=== PATIENT | male | born 1960 | race African-American/Black ===

== ENCOUNTER 2020-09-07 11:15 | Day surgery (SDC) | payer BC ==
[~2020-09-07 11:15] MED LIST: LIDOCAINE 1% (10MG/ML) FOR IV START INTRADERMA PRN
[2020-09-07 12:23] VITALS: RESP 16; TEMP 96.9
[2020-09-07] MEDS: LACTATED RINGERS 1,000 ML IV SCH ×2 (12:33→12:49)
[2020-09-07 12:35] LABS: Glucose,Whole Blood 153 mg/dL (75-99)
[2020-09-07] MEDS ORDERED: LIDOCAINE 1% INJ 10MG/ML (20 ML MDV) ONE (12:51)
[2020-09-07] MEDS ORDERED: PROPOFOL 10 MG/ML 20 ML VIAL IV ONE (12:51)
--- NOTE | 2020-09-07 13:20 | P.PCN ---
Date of Procedure: 09/07/20 Procedure(s) Performed: BRIEF HISTORY: Patient is a 60-year-old pleasant -[place] male scheduled for an elective colonoscopy as a part of screening for colorectal neoplasia. PROCEDURE PERFORMED: Colonoscopy. With snare polypectomy and Endo Clip placements PREOPERATIVE DIAGNOSIS: Screening for colon cancer. IV sedation per Anesthesia. PROCEDURE: After informed consent was obtained, the patient, was brought into the endoscopy unit. IV sedation was administered by Anesthesia under continuous monitoring. Digital rectal examination was normal. Initially the Olympus CF-160 flexible video colonoscope was then inserted in the rectum, gradually advanced into the cecum without any difficulty. Careful examination was performed as the scope was gradually being withdrawn. Ileocecal valve and the appendiceal orifice were visualized and appeared normal. Prep was excellent. The base of the cecum there was a 3 cm broad-based polyp removed by piecemeal snare polypectomy and complete polypectomy was accomplished. Endo clip was placed to prevent post- polypectomy bleed. Mucosa of the cecum, ascending colon normal. In the transverse colon there was a 5 mm polyp removed by snare polypectomy. Rest of the, transverse colon, descending colon, sigmoid colon, and rectum appeared normal. Retroflexion was performed in the rectum and no lesions were seen. The patient tolerated the procedure well. IMPRESSION: 3 cm broad-based cecal polyp status post piecemeal snare polypectomy followed by Endo Clip placement 5 mm transverse colon polyp status post polypectomy RECOMMENDATIONS: Findings of this examination were discussed with the patient as well as his family. He was advised to follow with the biopsy results and if the biopsy shows an adenoma plan a repeat colonoscopy in 6 months to one year.
[2020-09-07 13:43] VITALS: BP 126/76; PULSE 68
== END 2020-09-07 14:16 | disposition home or self-care (01) ==
LOC: ORWHC2ENDO 11:15
PROVIDERS: ATTEND Internal Medicine Gastroenterology
DX: Z12.11 Encounter for screening for malignant neoplasm of colon (principal); I10 Essential (primary) hypertension; E78.5 Hyperlipidemia, unspecified; M10.9 Gout, unspecified; E11.9 Type 2 diabetes mellitus without complications; Z79.84 Long term (current) use of oral hypoglycemic drugs; Z79.899 Other long term (current) drug therapy
CPT/HCPCS: 88305; 45385; J2001; J2704; 45382

== ENCOUNTER 2023-02-26 11:50 | Inpatient (IN) | payer BC ==
[2023-02-26] MEDS ORDERED: NITROGLYCERIN SL TABS 0.4 MG TAB SUBLINGUAL STA ×3 (12:04)
[2023-02-26] MEDS ORDERED: ASPIRIN 81 MG PO STA (12:04)
--- NOTE | 2023-02-26 12:06 | ED ---
General Adult HPI - General Chief complaint: Chest Pain Stated complaint: chest pains heavy chest Time Seen by Provider: 02/26/23 11:58 Source: patient, family, RN notes reviewed Mode of arrival: ambulatory Limitations: no limitations - History of Present Illness Initial comments: Patient is a pleasant 4 he 2-year-old male [facility]. Onset of symptoms was prior to arrival. Patient was walking and did do some sprints prior to onset however this was around a half an hour prior to it. Discomfort feels like pressure. Discomfort is rated 5/10. No dyspnea. Patient did have mild nausea and mild sweating earlier. No history of similar symptoms previously. No leg pain. No leg swelling. - Related Data Home Medications Medication Instructions Recorded Confirmed Atorvastatin [Lipitor] 10 mg PO HS 09/07/20 02/26/23 amLODIPine [Norvasc] 5 mg PO HS 09/07/20 02/26/23 glyBURIDE [Diabeta] 5 mg PO HS 09/07/20 02/26/23 metFORMIN HCL 500 mg PO HS 09/07/20 02/26/23 Allergies Allergy/AdvReac Type Severity Reaction Status Date / Time No Known Allergies Allergy Verified 02/26/23 13:17 Review of Systems ROS Statement: Those systems with pertinent positive or pertinent negative responses have been documented in the HPI. ROS Other: All systems not noted in ROS Statement are negative. Constitutional: Denies: fever Eyes: Denies: eye pain ENT: Denies: ear pain Respiratory: Denies: cough Cardiovascular: Reports: as per HPI, chest pain Endocrine: Denies: fatigue Gastrointestinal: Denies: vomiting Genitourinary: Denies: dysuria Musculoskeletal: Denies: back pain Past Medical History Past Medical History: Diabetes Mellitus History of Any Multi-Drug Resistant Organisms: None Reported Past Surgical History: No Surgical Hx Reported Past Psychological History: No Psychological Hx Reported Smoking Status: Never smoker Past Alcohol Use History: None Reported Past Drug Use History: None Reported General Exam Limitations: no limitations General appearance: alert, in no apparent distress Head exam: Present: normocephalic Eye exam: Present: normal appearance Neck exam: Present: normal inspection Respiratory exam: Present: normal lung sounds bilaterally. Absent: chest wall tenderness Cardiovascular Exam: Present: regular rate, normal rhythm Expanded Peripheral pulses: 2+: Radial (R), Radial (L), Posterior Tibialis (R), Posterior Tibialis (L) GI/Abdominal exam: Present: soft. Absent: tenderness Extremities exam: Present: normal inspection. Absent: pedal edema, calf tenderness Neurological exam: Present: alert Psychiatric exam: Present: normal affect, normal mood Skin exam: Present: normal color Course Vital Signs 02/26/23 11:53 Temperature 98 F Pulse Rate 70 Respiratory 18 Rate Blood Pressure 168/89 O2 Sat by Pulse 98 Oximetry EKG Findings - EKG Results: EKG: interpreted by ERMD, sinus rhythm, normal axis, normal QRS, normal ST/T Medical Decision Making - Medical Decision Making Was pt. sent in by a medical professional or institution (, PA, SKILLED NURSING CASE MANAGER, urgent care, hospital, or fdc...) When possible be specific @ -No Did you speak to anyone other than the patient for history (EMS, parent, family, police, friend...)? What history was obtained from this source @ - is present and helps provide history including patient's primary care physician Did you review nursing and triage notes (agree or disagree)? Why? @ -I reviewed and agree with nursing and triage notes Were old charts reviewed (outside hosp., previous admission, EMS record, old EKG, old radiological studies, urgent care reports/EKG's, fdc records)? Report findings @ -No old charts were reviewed Differential Diagnosis (chest pain, altered mental status, abdominal pain women, abdominal pain men, vaginal bleeding, weakness, fever, dyspnea, syncope, headache, dizziness, GI bleed, back pain, seizure, CVA, palpatations, mental health, musculoskeletal)? @ -Differential Chest Pain: Stable Angina, Unstable Angina, STEMI, NSTEMI Aortic Dissection, Pneumothorax, Musculoskeletal, Esophageal Spasm GERD, Cholecystitis, Pancreatitis, Zoster, this is not meant to be an all-inclusive list. EKG interpreted by me (3pts min.). @ -As above X-rays interpreted by me (1pt min.). @ -Chest x-ray shows no acute process CT interpreted by me (1pt min.). @ -Report reviewed U/S interpreted by me (1pt. min.). @ -None done What testing was considered but not performed or refused? (CT, X-rays, U/S, labs)? Why? @ -None What meds were considered but not given or refused? Why? @ -None Did you discuss the management of the patient with other professionals (professionals i.e. DrKeron, PA, SKILLED NURSING CASE MANAGER, lab, RT, psych nurse, clinical social work aide, business intelligence etl developer, teacher, recruitment officer, lining caser)? Give summary @ -Case was discussed with Dr. De Dios, who will admit for Dr. Agosto Was smoking cessation discussed for >3mins.? @ -No Was critical care preformed (if so, how long)? @ -No Were there social determinants of health that impacted care today? How? (Homel essness, low income, unemployed, alcoholism, drug addiction, transportation, low edu. Level, literacy, decrease access to med. care, prison, rehab)? @ -No Was there de-escalation of care discussed even if they declined (Discuss DNR or withdrawal of care, Hospice)? DNR status @ -No What co-morbidities impacted this encounter? (DM, HTN, Smoking, COPD, CAD, Cancer, CVA, ARF, Chemo, Hep., AIDS, mental health diagnosis, sleep apnea, morbid obesity)? @ -None Was patient admitted / discharged? Hospital course, mention meds given and route, prescriptions, significant lab abnormalities, going to OR and other pertinent info. @ -Patient reevaluated and is improved. Patient and family updated on results and plan. Patient will be admitted with cardiac consult. Admission orders written. Undiagnosed new problem with uncertain prognosis? @ -No Drug Therapy requiring intensive monitoring for toxicity (Heparin, Nitro, Insulin, Cardizem)? @ -No Were any procedures done? @ -No Diagnosis/symptom? @ -Chest pain Acute, or Chronic, or Acute on Chronic? @ -Acute Uncomplicated (without systemic symptoms) or Complicated (systemic symptoms)? @ -default Side effects of treatment? @ -No Exacerbation, Progression, or Severe Exacerbation? @ -No Poses a threat to life or bodily function? How? (Chest pain, [place], [place], pneumonia, PE, COPD, DKA, ARF, appy, cholecystitis, CVA, Diverticulitis, Homicidal, Suicidal, threat to staff... and all critical care pts) @ -No - Lab Data Result diagrams: 02/26/23 11:58 02/26/23 11:58 Lab Results 02/26/23 02/26/23 02/26/23 Range/Units 11:58 11:58 11:58 WBC 5.9 (3.8-10.6) k/uL RBC 4.92 (4.30-5.90) m/uL Hgb 15.5 (13.0-17.5) gm/dL Hct 46.4 (39.0-53.0) % MCV 94.3 (80.0-100.0) fL MCH 31.5 (25.0-35.0) pg MCHC 33.4 (31.0-37.0) g/dL RDW 12.7 (11.5-15.5) % Plt Count 269 (150-450) k/uL MPV 7.3 Neutrophils % 58 % Lymphocytes % 30 % Monocytes % 8 % Eosinophils % 2 % Basophils % 1 % Neutrophils # 3.4 (1.3-7.7) k/uL Lymphocytes # 1.8 (1.0-4.8) k/uL Monocytes # 0.4 (0-1.0) k/uL Eosinophils # 0.1 (0-0.7) k/uL Basophils # 0.0 (0-0.2) k/uL PT 10.9 (10.0-12.5) sec INR 1.0 (<1.2) APTT 23.9 (22.0-30.0) sec D-Dimer 0.74 H (<0.60) mg/L FEU Sodium 139 (137-145) mmol/L Potassium 4.5 (3.5-5.1) mmol/L Chloride 108 H (98-107) mmol/L Carbon Dioxide 21 L (22-30) mmol/L Anion Gap 10 mmol/L BUN 14 (9-20) mg/dL Creatinine 0.85 (0.66-1.25) mg/dL Est GFR (CKD-EPI)AfAm >90 (>60 ml/min/1.73 sqM) Est GFR (CKD-EPI)NonAf >90 (>60 ml/min/1.73 sqM) Glucose 194 H (74-99) mg/dL Calcium 9.6 (8.4-10.2) mg/dL Magnesium 1.7 (1.6-2.3) mg/dL Total Bilirubin 1.1 (0.2-1.3) mg/dL AST 29 (17-59) U/L ALT 25 (4-49) U/L Alkaline Phosphatase 79 (38-126) U/L Troponin I (0.000-0.034) ng/mL Total Protein 7.0 (6.3-8.2) g/dL Albumin 4.2 (3.5-5.0) g/dL 02/26/23 Range/Units 11:58 WBC (3.8-10.6) k/uL RBC (4.30-5.90) m/uL Hgb (13.0-17.5) gm/dL Hct (39.0-53.0) % MCV (80.0-100.0) fL MCH (25.0-35.0) pg MCHC (31.0-37.0) g/dL RDW (11.5-15.5) % Plt Count (150-450) k/uL MPV Neutrophils % % Lymphocytes % % Monocytes % % Eosinophils % % Basophils % % Neutrophils # (1.3-7.7) k/uL Lymphocytes # (1.0-4.8) k/uL Monocytes # (0-1.0) k/uL Eosinophils # (0-0.7) k/uL Basophils # (0-0.2) k/uL PT (10.0-12.5) sec INR (<1.2) APTT (22.0-30.0) sec D-Dimer (<0.60) mg/L FEU Sodium (137-145) mmol/L Potassium (3.5-5.1) mmol/L Chloride (98-107) mmol/L Carbon Dioxide (22-30) mmol/L Anion Gap mmol/L BUN (9-20) mg/dL Creatinine (0.66-1.25) mg/dL Est GFR (CKD-EPI)AfAm (>60 ml/min/1.73 sqM) Est GFR (CKD-EPI)NonAf (>60 ml/min/1.73 sqM) Glucose (74-99) mg/dL Calcium (8.4-10.2) mg/dL Magnesium (1.6-2.3) mg/dL Total Bilirubin (0.2-1.3) mg/dL AST (17-59) U/L ALT (4-49) U/L Alkaline Phosphatase (38-126) U/L Troponin I <0.012 (0.000-0.034) ng/mL Total Protein (6.3-8.2) g/dL Albumin (3.5-5.0) g/dL Disposition Clinical Impression: Chest pain Disposition: ADMITTED IP TO THIS HOSP Is patient prescribed a controlled substance at d/c from ED?: No Referrals: Blu Agosto MD [Primary Care Provider] - 1-2 days Time of Disposition: 13:50
[2023-02-26 12:24] LABS: Basophils % (A) 1 %; Eosinophils # (A) 0.1 k/uL (0-0.7); Eosinophils % (A) 2 %; HCT 46.4 % (39.0-53.0); HGB 15.5 gm/dL (13.0-17.5); Lymphocytes # (A) 1.8 k/uL (1.0-4.8); Lymphocytes % (A) 30 %; MCH 31.5 pg (25.0-35.0); MCHC 33.4 g/dL (31.0-37.0); MCV 94.3 fL (80.0-100.0); Mean Platelet Volume 7.3; Monocytes # (A) 0.4 k/uL (0-1.0); Monocytes % (A) 8 %; Neutrophils # (A) 3.4 k/uL (1.3-7.7); Neutrophils % (A) 58 %; Platelet Count 269 k/uL (150-450); RBC 4.92 m/uL (4.30-5.90); RDW 12.7 % (11.5-15.5); WBC 5.9 k/uL (3.8-10.6)
--- NOTE | 2023-02-26 12:27 | XR ---
EXAMINATION TYPE: XR chest 2V DATE OF EXAM: 02/26/2023 COMPARISON: NONE HISTORY: Shortness of breath TECHNIQUE: Frontal and lateral views of the chest are obtained. FINDINGS: Scattered senescent parenchymal changes noted. Hyperinflation compatible with COPD. No evidence for infiltrate. No evidence for atelectasis. Heart size is stable. Mediastinal structures are stable and grossly unremarkable. No evidence for hilar prominence. Degenerative changes dorsal spine. IMPRESSION: 1. No evidence for acute pulmonary disease.
[2023-02-26 12:40] LABS: ALT 25 U/L (4-49); AST 29 U/L (17-59); African American GFR (CKD) >90 (>60 ml/min/1.73 sqM); Albumin 4.2 g/dL (3.5-5.0); Alkaline Phosphatase 79 U/L (38-126); Anion Gap 10 mmol/L; Blood Urea Nitrogen 14 mg/dL (9-20); Calcium 9.6 mg/dL (8.4-10.2); Carbon Dioxide 21 mmol/L (22-30); Chloride 108 mmol/L (98-107); Glucose 194 mg/dL (74-99); Magnesium 1.7 mg/dL (1.6-2.3); Non-African American GFR(CKD) >90 (>60 ml/min/1.73 sqM); Potassium 4.5 mmol/L (3.5-5.1); Sodium 139 mmol/L (137-145); Total Bilirubin 1.1 mg/dL (0.2-1.3)
[2023-02-26 12:43] LABS: Partial Thromboplastin Time 23.9 sec (22.0-30.0); Prothrombin Time 10.9 sec (10.0-12.5)
--- NOTE | 2023-02-26 13:35 | CT ---
The EXAMINATION TYPE: CT angio chest DATE OF EXAM: 02/26/2023 COMPARISON: None HISTORY: elevated d-dimer CT DLP: 672.5 mGycm CONTRAST: CT chest with contrast and 3D reconstruction with MIP imaging is performed with IV Contrast, patient injected with 100 mL of Isovue 370. Contrast-enhanced CT of the chest was performed through the course of the pulmonary arteries with mercedez g and mediastinal window settings submitted. 3D reconstruction with MIP imaging was also performed. PULMONARY ARTERIES: The pulmonary arteries and their major tributaries are patent. I do not see fermin dence for sizable filling defect to suggest pulmonary embolic process. LUNGS: The lungs are clear and free of infiltrate. No evidence for atelectasis. No pulmonary nodule or mass is detected. No pleural effusion. MEDIASTINUM: Thoracic aorta is of normal caliber,however, evaluation is limited given timing of the contrast bolus. If there is concern for thoracic aortic pathology consider CORNELIA. Correlate clinicall y . The heart is not enlarged. No evidence for mediastinal mass. No mediastinal lymph nodes greater than 1cm. HILAR STRUCTURES: No evidence for mass. No hilar lymph nodes greater than 1 cm. UPPER ABDOMEN: No significant abnormality is seen. IMPRESSION: 1. No evidence for Pulmonary embolism at this time.
[2023-02-26] MEDS ORDERED: NITROGLYCERIN SL TABS 0.4 MG TAB SUBLINGUAL PRN (13:50)
[2023-02-26 16:46] LABS: Glucose,Whole Blood 124 mg/dL (70-110)
[2023-02-26] MEDS: INSULIN ASPART (NovoLOG) 100 UNIT/ML VIAL SQ SCH ×2 (16:47→21:19)
[2023-02-26] MEDS: NITROGLYCERIN OINT 1 INCH/GM PACKET TOPICAL SCH (17:06)
--- NOTE | 2023-02-26 17:28 | P.HPIM ---
History of Present Illness H&P Date: 02/26/23 Chief Complaint: Chest pain 62-year-old male, history of hypertension, hyperlipidemia, diabetes mellitus type 2, presenting to the emergency department with concerns for chest discomfort. Onset of symptoms was prior to arrival. Patient was walking and did do some sprints prior to onset however this was around a half an hour prior to it. Discomfort feels like pressure. Discomfort is rated 5/10. No dyspnea. Patient did have mild nausea and mild sweating earlier. No history of similar symptoms previously. No leg pain. No leg swelling. Blood work completed in ED reveals a WBC 5.9, hemoglobin 15.5 and platelet count of 269, sodium 139, potassium 4.5, BUN/creatinine of 14/0.85 and blood glucose of 194, troponin is less than 0.012; d-dimer is slightly elevated at 0.74 EKG is unremarkable; chest x-ray is negative for any acute process CTA chest is negative for PE Review of Systems REVIEW OF SYSTEMS: CONSTITUTIONAL: No fever, no malaise, no fatigue. HEENT: No recent visual problems or hearing problems. Denied any sore throat. CARDIOVASCULAR: No chest pain, orthopnea, PND, no palpitations, no syncope. PULMONARY: No shortness of breath, no cough, no hemoptysis. GASTROINTESTINAL: No diarrhea, no nausea, no vomiting, no abdominal pain. NEUROLOGICAL: No headaches, no weakness, no numbness. HEMATOLOGICAL: Denies any bleeding or petechiae. GENITOURINARY: Denies any burning micturition, frequency, or urgency. MUSCULOSKELETAL/RHEUMATOLOGICAL: Denies any joint pain, swelling, or any muscle pain. ENDOCRINE: Denies any polyuria or polydipsia. The rest of the 14-point review of systems is negative. Past Medical History Past Medical History: Diabetes Mellitus History of Any Multi-Drug Resistant Organisms: None Reported Past Surgical History: No Surgical Hx Reported Past Psychological History: No Psychological Hx Reported Smoking Status: Never smoker Past Alcohol Use History: None Reported Past Drug Use History: None Reported Medications and Allergies Home Medications Medication Instructions Recorded Confirmed Type Atorvastatin [Lipitor] 10 mg PO HS 09/07/20 02/26/23 History amLODIPine [Norvasc] 5 mg PO HS 09/07/20 02/26/23 History glyBURIDE [Diabeta] 5 mg PO HS 09/07/20 02/26/23 History metFORMIN HCL 500 mg PO HS 09/07/20 02/26/23 History Allergies Allergy/AdvReac Type Severity Reaction Status Date / Time No Known Allergies Allergy Verified 02/26/23 13:17 Physical Exam Vitals: Vital Signs Temp Pulse Resp BP Pulse Ox 02/26/23 14:00 64 18 124/59 97 02/26/23 13:00 64 18 153/84 97 02/26/23 11:53 98 F 70 18 168/89 98 Intake and Output 02/26/23 02/26/23 02/26/23 06:59 14:59 22:59 Other: Weight 115.666 kg PHYSICAL EXAMINATION: GENERAL: The patient is alert and oriented x3, not in any acute distress. Well developed, well nourished. HEENT: Pupils are round and equally reacting to light. EOMI. No scleral icterus. No conjunctival pallor. Normocephalic, atraumatic. No pharyngeal erythema. No thyromegaly. CARDIOVASCULAR: S1 and S2 present. No murmurs, rubs, or gallops. PULMONARY: Chest is clear to auscultation, no wheezing or crackles. ABDOMEN: Soft, nontender, nondistended, normoactive bowel sounds. No palpable organomegaly. MUSCULOSKELETAL: No joint swelling or deformity. EXTREMITIES: No cyanosis, clubbing, or pedal edema. NEUROLOGICAL: Gross neurological examination did not reveal any focal deficits. SKIN: No rashes. Results CBC & Chem 7: 02/26/23 11:58 02/26/23 11:58 Labs: Abnormal Lab Results - Last 24 Hours (Table) 02/26/23 02/26/23 Range/Units 11:58 11:58 D-Dimer 0.74 H (<0.60) mg/L FEU Chloride 108 H (98-107) mmol/L Carbon Dioxide 21 L (22-30) mmol/L Glucose 194 H (74-99) mg/dL Assessment and Plan Assessment: 1. Chest pain rule out acute coronary syndrome -- We will plan to admit patient to telemetry; monitor EKG and trend troponin - Patient will be placed on aspirin; sublingual nitroglycerin as needed for chest pain - We will plan to start IV heparin if patient continues to complain of chest pain or troponin trends up - We will order 2-D echo Consult cardiology 2. Elevated d-dimer; rule out PE; CT of the chest completed in ED was negative for PE 3. Hyperglycemia; history of diabetes mellitus type 2; patient takes glyburide and metformin which will be placed on hold while inpatient; we will monitor Accu-Cheks before meals and at bedtime with insulin sliding scale 4. Hyperlipidemia; Lipitor 10 mg 2 daily at bedtime 5. Hypertension; amlodipine 5 mg daily DVT prophylaxis; SCDs/subcu heparin CODE STATUS; full code
[2023-02-26] MEDS ORDERED: amLODIPine 5 MG TAB PO SCH (21:00)
[2023-02-26] MEDS ORDERED: ATORVASTATIN 10 MG TAB PO SCH (21:00)
[2023-02-26 21:07] LABS: Glucose,Whole Blood 105 mg/dL (70-110)
[2023-02-26] MEDS ORDERED: HEPARIN SODIUM 1,000 UN/ML (10ML VL) IV ONE (21:11)
[2023-02-26] MEDS ORDERED: HEPARIN SODIUM 1,000 UN/ML (10ML VL) IV PRN (21:11)
[2023-02-26] MEDS ORDERED: HEPARIN SOD,PORK IN 0.45% NACL 25,000 UNIT in 0.45% NACL 1 250ML.BAG IV SCH (21:15)
[2023-02-27] MEDS: NITROGLYCERIN OINT 1 INCH/GM PACKET TOPICAL SCH ×2 (01:11→06:06)
[2023-02-27 04:06] LABS: Partial Thromboplastin Time 35.2 sec (22.0-30.0); Prothrombin Time 10.8 sec (10.0-12.5)
[2023-02-27] MEDS ORDERED: HEPARIN SODIUM,PORCINE (1 ML) 2,500 UNIT in SODIUM CHLORIDE 0.9% 250 ML IRRIGATION PRN (07:00)
[2023-02-27] MEDS ORDERED: HEPARIN SODIUM,PORCINE 10,000 UNIT in SODIUM CHLORIDE 0.9% 1,000 ML IRRIGATION PRN (07:00)
[2023-02-27] MEDS ORDERED: ASPIRIN 325 MG TAB PO STA (08:14)
[2023-02-27] MEDS ORDERED: ATORVASTATIN 80 MG TAB PO STA (08:14)
[2023-02-27] MEDS ORDERED: ALPRAZolam 0.5 MG TAB PO PRN (08:14)
[2023-02-27] MEDS ORDERED: ALPRAZolam 0.25 MG TAB PO PRN (08:14)
[2023-02-27] MEDS ORDERED: NITROGLYCERIN SL TABS 0.4 MG TAB SUBLINGUAL PRN (08:14)
--- NOTE | 2023-02-27 08:20 | P.CRDCN ---
History of Present Illness Consult date: 02/27/23 History of present illness: History of Present Illness: The patient is a 62-year-old male with a history of hypertension, hyperlipidemia and diabetes who has been trying to be more active physically and presented with substernal chest discomfort that persisted after he went to [facility] and improved upon arrival to the emergency room and receiving nitroglycerin sublingually. He is pain-free at this time. He denies any chest discomfort or dyspnea at this point. He denies any dizziness or palpitations, no PND, orthopnea or peripheral edema. He has no prior cardiac history or recent cardiac workup. He has been trying to walk on a regular basis and do some sprinting and is feeling well until yesterday. In the emergency room his EKG showed no acute changes but he had troponin elevation. Medications: Metformin 500 mg daily, DiaBeta, Norvasc 5 mg daily, Lipitor 10 mg daily. Review of Systems: Respiratory: No history of asthma, bronchitis or recent cough. GI: No nausea or vomiting . No history of peptic ulcer disease. No recent GI bleed. : No hematuria or dysuria. Nervous System: No stroke or seizure. Physical Examination: 62-year-old male, alert and oriented no apparent distress ,Blood pressure 123/78, Heart rate 64 Head: Normocephalic. Eyes: Sclerae nonicteric. Neck: Good carotid upstroke, no bruit, no jugular venous distention. Lungs: Clear to auscultation. Heart: Regular rate and rhythm, S1-S2, no S3, no rub. No murmur. Abdomen: Soft nontender, positive bowel sounds no organomegaly. Extremities: No edema, intact distal pulses. Labs: Hemoglobin 15.5, potassium 4.5, BUN 14, creatinine 0.85, troponin less than 0.012, 0.128, 0.98. CT angiogram of the chest showed no evidence of embolism. Chest x-ray with no infiltrate EKG: Sinus mechanism normal axis and intervals with no acute ST segment changes Impression: 1. Acute non-STEMI, pain-free at this time 2. History of hypertension 3. History of hyperlipidemia 4. History of diabetes Plan: 1. Obtain an echocardiogram with Doppler 2. Continue statin 3. Proceed with coronary angiography to assess status and guide treatment 4. The risks and the complications were discussed with the patient who is in full understanding and agreement 5. Thank you for this consult we will follow with you Past Medical History Past Medical History: Diabetes Mellitus History of Any Multi-Drug Resistant Organisms: None Reported Past Surgical History: No Surgical Hx Reported Past Psychological History: No Psychological Hx Reported Smoking Status: Never smoker Past Alcohol Use History: None Reported Past Drug Use History: None Reported Medications and Allergies Home Medications Medication Instructions Recorded Confirmed Type Atorvastatin [Lipitor] 10 mg PO HS 09/07/20 02/26/23 History amLODIPine [Norvasc] 5 mg PO HS 09/07/20 02/26/23 History glyBURIDE [Diabeta] 5 mg PO HS 09/07/20 02/26/23 History metFORMIN HCL 500 mg PO HS 09/07/20 02/26/23 History Allergies Allergy/AdvReac Type Severity Reaction Status Date / Time No Known Allergies Allergy Verified 02/26/23 13:17 Physical Exam Vitals: Vital Signs Temp Pulse Resp BP Pulse Ox 02/27/23 06:00 64 18 123/78 96 02/27/23 05:00 62 18 107/62 95 02/27/23 04:00 61 18 116/65 99 02/27/23 03:00 67 18 128/67 98 02/27/23 00:00 65 20 114/77 96 02/26/23 23:00 80 20 132/74 96 02/26/23 22:00 75 22 140/79 96 02/26/23 21:00 75 22 150/78 96 02/26/23 20:35 80 18 150/78 95 02/26/23 19:00 85 15 02/26/23 16:00 63 17 160/87 96 02/26/23 15:21 68 18 160/87 97 02/26/23 14:00 64 18 124/59 97 02/26/23 13:00 64 18 153/84 97 02/26/23 11:53 98 F 70 18 168/89 98 Intake and Output 02/26/23 02/27/23 02/27/23 22:59 06:59 14:59 Intake Total 70.202 Balance 70.202 Intake: Intake, IV Titration 70.202 Amount Heparin Sod,Pork in 0.45% 70.202 NaCl 25,000 unit In 0.45 % NaCl 1 250ml.bag @ 8.65 UNITS/KG/HR 10.005 mls/ hr IV .Q24H DORITA Rx#: [id number] Results 02/26/23 11:58 02/26/23 11:58 Cardiac Enzymes 02/26/23 02/26/23 02/26/23 Range/Units 11:58 11:58 15:15 AST 29 (17-59) U/L Troponin I <0.012 0.128 H* (0.000-0.034) ng/mL 02/26/23 Range/Units 18:45 AST (17-59) U/L Troponin I 0.980 H* (0.000-0.034) ng/mL Coagulation 02/26/23 02/27/23 Range/Units 11:58 03:26 PT 10.9 10.8 (10.0-12.5) sec APTT 23.9 35.2 H (22.0-30.0) sec CBC 02/26/23 Range/Units 11:58 WBC 5.9 (3.8-10.6) k/uL RBC 4.92 (4.30-5.90) m/uL Hgb 15.5 (13.0-17.5) gm/dL Hct 46.4 (39.0-53.0) % Plt Count 269 (150-450) k/uL Comprehensive Metabolic Panel 02/26/23 Range/Units 11:58 Sodium 139 (137-145) mmol/L Potassium 4.5 (3.5-5.1) mmol/L Chloride 108 H (98-107) mmol/L Carbon Dioxide 21 L (22-30) mmol/L BUN 14 (9-20) mg/dL Creatinine 0.85 (0.66-1.25) mg/dL Glucose 194 H (74-99) mg/dL Calcium 9.6 (8.4-10.2) mg/dL AST 29 (17-59) U/L ALT 25 (4-49) U/L Alkaline Phosphatase 79 (38-126) U/L Total Protein 7.0 (6.3-8.2) g/dL Albumin 4.2 (3.5-5.0) g/dL Current Medications Generic Name Dose Route Start Last Admin Trade Name Freq PRN Reason Stop Dose Admin Amlodipine Besylate 5 mg 02/26/23 21:00 02/26/23 21:19 Amlodipine 5 Mg Tab PO 5 mg HS DORITA Administration Aspirin 325 mg 10/16/23 09:00 Aspirin 325 Mg Tab PO DAILY [facility] Atorvastatin Calcium 10 mg 02/26/23 21:00 02/26/23 21:19 Atorvastatin 10 Mg Tab PO 10 mg HS DORITA Administration Heparin Sodium (Porcine) 0 unit 02/26/23 21:11 02/27/23 04:19 Heparin Sodium 1,000 Un/Ml (10ml Vl) IV 2,891.65 unit PER PROTOCOL PRN Administration Low PTT Protocol Heparin Sodium/Sodium Chloride 250 mls @ 10.005 mls/hr 02/26/23 21:15 02/27/23 04:21 25,000 unit/ Sodium Chloride IV 10.65 units/kg/hr .Q24H DORITA 12.318 mls/hr Titration Protocol 8.65 UNITS/KG/HR Insulin Aspart 0 unit 02/26/23 17:30 02/26/23 21:19 Insulin Aspart (Novolog) 100 Unit/Ml Vial SQ 03/05/23 17:31 Not Given ACHS [facility] Protocol Nitroglycerin 0.4 mg 02/26/23 13:50 Nitroglycerin Sl Tabs 0.4 Mg Tab SUBLINGUAL Q5M PRN Chest Pain Nitroglycerin 1 inch 02/26/23 18:00 02/27/23 06:06 Nitroglycerin Oint 1 Inch/Gm Packet TOPICAL 1 inch Q6HR DORITA Administration Intake and Output 02/26/23 02/27/23 02/27/23 22:59 06:59 14:59 Intake Total 70.202 Balance 70.202 Intake: Intake, IV Titration 70.202 Amount Heparin Sod,Pork in 0.45% 70.202 NaCl 25,000 unit In 0.45 % NaCl 1 250ml.bag @ 8.65 UNITS/KG/HR 10.005 mls/ hr IV .Q24H [facility] Rx#: [id number] 02/26/23 11:58 02/26/23 11:58
[2023-02-27] MEDS: SODIUM CHLORIDE 0.9% 1,000 ML in EMPTY BAG 1 BAG IV SCH ×2 (08:36→13:10)
[2023-02-27] MEDS: INSULIN ASPART (NovoLOG) 100 UNIT/ML VIAL SQ SCH ×4 (08:41→20:21)
[2023-02-27 08:57] LABS: Basophils # (A) 0.07 X 10*3/uL (0.00-0.10); Basophils % (A) 0.8 %; Eosinophils # (A) 0.14 X 10*3/uL (0.04-0.35); Eosinophils % (A) 1.6 %; HCT 43.2 % (39.6-50.0); HGB 14.5 d/dL (13.0-17.0); Lymphocytes # (A) 4.09 X 10*3/uL (0.90-5.00); Lymphocytes % (A) 45.6 %; MCH 30.9 pg (27.0-32.0); MCHC 33.6 d/dL (32.0-37.0); MCV 92.1 FL (80.0-97.0); Mean Platelet Volume 9.9 FL (9.5-12.2); Monocytes % (A) 7.8 %; NRBC Per 100 WBC 0 X 10*3/uL (0.00-0.01); Neutrophils # (A) 3.94 X 10*3/uL (1.80-7.70); Neutrophils % (A) 43.9 %; Platelet Count 302 X 10*3/uL (140-440); RBC 4.69 X 10*6/uL (4.40-5.60); RDW 12.8 % (11.5-14.5); WBC 8.97 X 10*3/uL (4.50-10.00)
[2023-02-27] MEDS ORDERED: ASPIRIN 325 MG TAB PO SCH (09:00)
[2023-02-27] MEDS ORDERED: fentaNYL (PF) 50 MCG/ML 2 ML AMP ONE (09:44)
[2023-02-27] MEDS ORDERED: HEPARIN SODIUM 1,000 UN/ML (10ML VL) ONE (09:44)
[2023-02-27] MEDS ORDERED: IV FLUID CONTINUATION 1,000 ML IV ONE (09:48)
[2023-02-27 10:02] LABS: Blood Urea Nitrogen 15.6 mg/dL (9.0-27.0); Calcium 9.1 mg/dL (8.7-10.3); Carbon Dioxide 22.4 mmol/L (21.6-31.8); Chloride 106 mmol/L (96-109); Glucose 138 mg/dL (70-110); Potassium 3.8 mmol/L (3.5-5.5); Sodium 140 mmol/L (135-145)
[2023-02-27] MEDS ORDERED: fentaNYL (PF) 50 MCG/1 ML VIAL IVP ONE (10:29)
[2023-02-27] MEDS ORDERED: MIDAZOLAM 2 MG/2 ML VIAL IVP ONE (10:33)
[2023-02-27] MEDS ORDERED: LIDOCAINE 1% INJ 10MG/ML (20 ML MDV) SQ ONE (10:33)
[2023-02-27] MEDS ORDERED: VERAPAMIL SYRINGE (5 MG/10 ML) INTRAARTER ONE (10:35)
[2023-02-27] MEDS ORDERED: HEPARIN SODIUM 1,000 UN/ML (10ML VL) IV ONE (10:42)
[2023-02-27] MEDS ORDERED: CLOPIDOGREL 75 MG TAB ONE (10:48)
[2023-02-27] MEDS ORDERED: IOPAMIDOL-370 200ML BTL INJ ONE (10:51)
[2023-02-27] MEDS ORDERED: CLOPIDOGREL 75 MG TAB PO ONE (10:51)
[2023-02-27] MEDS ORDERED: RX INFO: IV CONTRAST WAS GIVEN 1 EACH MISC MISCELLANE PRN (11:00)
--- NOTE | 2023-02-27 11:06 | P.CARDCATH ---
Date of Procedure: 02/27/23 Description of Procedure: Cardiac Catheterization: The patient is a 62-year-old male with known history of hypertension, hyperlipidemia and diabetes who presented with symptoms of chest discomfort and mild troponin elevation. Recommendations were made regarding cardiac catheterization, the risks and the complications were discussed with the patient who is in full understanding and agreement. Procedure Description: Patient was brought to photo lab specialist in fasting semi-sedated state after receiving Fentanyl and Benadryl achieiving moderate conscious sedated state. Using Xylocaine Anesthesia and modified Seldinger technique, a 6-Romansh sheath was introduced in the right radial artery . Subsequently, selective coronary angiography was performed using a 5-Romansh 3.5 bend Dorothy catheter. Multiple views of the coronary artery including hemiaxial views were obtained. The right Dorothy catheter was used to cross the aortic valve and LVEDP was calculated. Following that, catheter and sheath were removed. Hemostasis was obtained with deployment of vascular band . There was no immediate complication. Patient was returned to room in stable condition. Of note, the patient received a total of 5000 units of intravenous heparin as well as intra-arterial verapamil. Findings: Left main: This is a large-size vessel, bifurcating into LAD and circumflex, left main has no high-grade stenosis LAD: This is a large-size vessel, reaching to the apex with a wraparound apex segment, giving rise to 2 diagonal branch. The first diagonal branch has a 50% plaque at the ostium the rest of the vessel has no high-grade stenosis Left circumflex: This is a nondominant vessel giving rise to 2 obtuse marginal branch of the first obtuse marginal branch is proximal and has a 50-60% ostial and proximal lesion, the rest of the vessel has mild mid disease with no high- grade stenosis RCA: This is a dominant vessel moderate in caliber and bifurcating distally to PDA and PLV the right coronary artery has 10-20% plaque in the proximal segment, there is an eccentric 50% plaque in the distal mid segment there is of the vessel has no high-grade stenosis. Left Ventriculogram: Not performed Hemodynamics: Was no gradient across the aortic valve, LVEDP was 16-20 mmHg Conclusion: 1. Mild to moderate triple-vessel disease 2. Right dominance Recommendations: It is possible that the patient had a rupture plaque or vasospasm, I would maximize his medical therapy in attempt to maintain his LDL below 70 with a gram per deciliter. The findings and the recommendations were discussed with the patient and the family and they were in full understanding and agreement. Duration of sedation is 19 minutes.
[2023-02-27 11:12] LABS: Glucose,Whole Blood 158 mg/dL (70-110)
[2023-02-27] MEDS: SODIUM CHLORIDE 0.9% 1,000 ML IV SCH (11:15)
[2023-02-27 12:21] LABS: Glucose,Whole Blood 268 mg/dL (70-110)
--- NOTE | 2023-02-27 13:01 | P.PN ---
Subjective Progress Note Date: 02/27/23 Patient is a 62 year old male who comes in with chest discomfort relieved by nitroglycerin. Had troponin elevation which peaked at 0.980. Patient underwent cardiac catheterization which reveals mild to moderate triple vessel disease, possible rupture plaque or vasospasm. Patient will be optimized medically with target LDL of less than 70. Echocardiogram is currently pending. Review of Systems Constitutional: Denied any fatigue denied any fever. Cardio vascular: denied any chest pain, palpitations Gastrointestinal: denied any nausea, vomiting, diarrhea Pulmonary: Denied any shortness of breath cough Neurologic denied any new focal deficits All inpatient medications were reviewed and appropriate changes in these medications as dictated in the interval history and assessment and plan. PHYSICAL EXAMINATION: GENERAL: The patient is alert and oriented x3, not in any acute distress. Well developed, well nourished. HEENT: Pupils are round and equally reacting to light. EOMI. No scleral icterus. No conjunctival pallor. Normocephalic, atraumatic. No pharyngeal erythema. No thyromegaly. CARDIOVASCULAR: S1 and S2 present. No murmurs, rubs, or gallops. PULMONARY: Chest is clear to auscultation, no wheezing or crackles. ABDOMEN: Soft, nontender, nondistended, normoactive bowel sounds. No palpable organomegaly. MUSCULOSKELETAL: No joint swelling or deformity. EXTREMITIES: No cyanosis, clubbing, or pedal edema. NEUROLOGICAL: Gross neurological examination did not reveal any focal deficits. SKIN: No rashes. Assessment Elevated troponin due to acute N-STEMI with mild to moderate triple vessel disease with possible rupture plaque or vasospasm Elevated d-dimer; rule out PE; CT of the chest completed in ED was negative for PE Diabetes Mellitus type 2 with hyperglycemia; patient takes glyburide and metformin which will be placed on hold while inpatient Dyslipidemia Hypertension Obesity Full Code Plan Patient has been started on dual antiplatelet therapy with aspirin 81 mg daily and plavix 75 mg daily Started on Imdur Amlodipine has been discontinued and patient has been started on lisinopril Target goal of LDL is less than 70, current level is 50 atorvastatin has been increased to 80 mg HS Continue to hold metformin for 48 hours post contrast Patient will be monitored overnight continue telemetry monitoring The impression and plan of care has been dictated by Tierra Guy, Nurse Practitioner as directed. Dr. Kaylah MD I have performed a history and physical examination and medical decision making of this patient, discussed the same with the dictator, and agree with the dictators assessment and plan as written, documented as a scribe. Based on total visit time, I have performed more than 50% of this visit. Objective - Vital Signs Vital signs: Vital Signs Temp 97.9 F 02/27/23 12:27 Pulse 71 02/27/23 12:27 Resp 18 02/27/23 12:27 BP 123/72 02/27/23 12:27 Pulse Ox 95 02/27/23 12:27 FiO2 Intake & Output 02/26/23 02/27/23 02/27/23 18:59 06:59 18:59 Intake Total 70.202 320 Balance 70.202 320 Weight 115.666 kg 115.666 kg Intake: IV 200 Intake, IV Titration 70.202 Amount Heparin Sod,Pork in 0.45% 70.202 NaCl 25,000 unit In 0.45 % NaCl 1 250ml.bag @ 8.65 UNITS/KG/HR 10.005 mls/ hr IV .Q24H [facility] Rx#: [id number] Oral 120 Other: # Voids 1 - Labs CBC & Chem 7: 02/27/23 03:26 02/27/23 03:26 Labs: Abnormal Lab Results - Last 24 Hours (Table) 02/26/23 02/26/23 02/26/23 Range/Units 15:15 16:44 18:45 APTT (22.0-30.0) sec Glucose (70-110) mg/dL POC Glucose (mg/dL) 124 H (70-110) mg/dL Troponin I 0.128 H* 0.980 H* (0.000-0.034) ng/mL 02/27/23 02/27/23 02/27/23 Range/Units 03:26 03:26 11:10 APTT 35.2 H (22.0-30.0) sec Glucose 138 H (70-110) mg/dL POC Glucose (mg/dL) 158 H (70-110) mg/dL Troponin I (0.000-0.034) ng/mL 02/27/23 Range/Units 12:19 APTT (22.0-30.0) sec Glucose (70-110) mg/dL POC Glucose (mg/dL) 268 H (70-110) mg/dL Troponin I (0.000-0.034) ng/mL Assessment and Plan Time with Patient: Less than 30
[2023-02-27] MEDS: PANTOPRAZOLE 40 MG TABLET PO SCH (13:02)
[2023-02-27] MEDS: ISOSORBIDE MONONITRATE ER 30 MG TAB.ER.24H PO SCH (13:07)
[2023-02-27 16:44] LABS: Glucose,Whole Blood 122 mg/dL (70-110)
[2023-02-27 20:34] VITALS: RESP 16
[2023-02-27] MEDS: lisinopriL 5 MG TAB PO SCH (20:52)
[2023-02-27 20:53] LABS: Glucose,Whole Blood 188 mg/dL (70-110)
[2023-02-27] MEDS ORDERED: ATORVASTATIN 80 MG TAB PO SCH (21:00)
[2023-02-28] MEDS: SODIUM CHLORIDE 0.9% 1,000 ML IV SCH (01:51)
[2023-02-28] MEDS: SODIUM CHLORIDE 0.9% 1,000 ML in EMPTY BAG 1 BAG IV SCH ×2 (01:51→11:38)
[2023-02-28 05:51] LABS: Glucose,Whole Blood 151 mg/dL (70-110)
[2023-02-28] MEDS: INSULIN ASPART (NovoLOG) 100 UNIT/ML VIAL SQ SCH ×2 (06:05→12:03)
[2023-02-28] MEDS: PANTOPRAZOLE 40 MG TABLET PO SCH (06:35)
[2023-02-28 08:02] VITALS: TEMP 97.8
[2023-02-28] MEDS: ISOSORBIDE MONONITRATE ER 30 MG TAB.ER.24H PO SCH (08:10)
[2023-02-28] MEDS: lisinopriL 5 MG TAB PO SCH (08:10)
[2023-02-28 08:18] LABS: African American GFR (CKD) >90 (>60 ml/min/1.73 sqM); Anion Gap 9 mmol/L; Blood Urea Nitrogen 15 mg/dL (9-20); Calcium 8.5 mg/dL (8.4-10.2); Carbon Dioxide 23 mmol/L (22-30); Chloride 107 mmol/L (98-107); Glucose 139 mg/dL (74-99); Non-African American GFR(CKD) >90 (>60 ml/min/1.73 sqM); Potassium 4.1 mmol/L (3.5-5.1); Sodium 139 mmol/L (137-145)
[2023-02-28] MEDS ORDERED: ASPIRIN 81 MG PO SCH (09:00)
[2023-02-28] MEDS ORDERED: CLOPIDOGREL 75 MG TAB PO SCH (09:00)
[2023-02-28 11:37] VITALS: BP 128/63; PULSE 68
[2023-02-28 11:54] LABS: Glucose,Whole Blood 153 mg/dL (70-110)
--- NOTE | 2023-02-28 13:01 | CA ---
Transthoracic Echo Report Name: Rei Jarrell Age: 62 Gender: M : 1960 Exam Date: 02/27/2023 16:00 Exam Location: [place] [facility] Ht (in): 69 Wt (lb): 255 Ordering Physician: Grazyna Bethea Attending/Referring Phys: [id number], [place] [employer] Radha Luna [facility] Procedure CPT: Indications: LV function, NSTEMI Cardiac Hx: Technical Quality: Contrast 1: Total Dose (mL): Contrast 2: Total Dose (mL): MEASUREMENTS (Male / Female) Normal Values 2D ECHO LV Diastolic Diameter PLAX 5.5 cm 4.2 - 5.9 / 3.9 - 5.3 cm LV Systolic Diameter PLAX 2.8 cm IVS Diastolic Thickness 1.4 cm 0.6 - 1.0 / 0.6 - 0.9 cm LVPW Diastolic Thickness 1.4 cm 0.6 - 1.0 / 0.6 - 0.9 cm LV Relative Wall Thickness 0.5 LVOT Diameter 2.0 cm Ascending Aorta Diameter 4.0 cm M-MODE Aortic Root Diameter MM 3.1 cm LA Systolic Diameter MM 3.9 cm LA Ao Ratio MM 1.3 AV Cusp Separation MM 2.2 cm DOPPLER AV Peak Velocity 150.0 cm/s AV Peak Gradient 9.0 mmHg AV Mean Velocity 111.9 cm/s AV Mean Gradient 5.5 mmHg AV Velocity Time Integral 29.4 cm AI Peak Velocity 412.7 cm/s AI Peak Gradient 68.1 mmHg AI Pressure Half Time 545.0 ms LVOT Peak Velocity 130.5 cm/s LVOT Peak Gradient 6.8 mmHg LVOT Velocity Time Integral 25.0 cm LVOT Stroke Volume 78.0 cm??? LVOT Stroke Volume Index 34.0 ml/m??? AV Area Cont Eq vti 2.7 cm??? AV Area Cont Eq pk 2.7 cm??? Mitral E Point Velocity 68.3 cm/s Mitral A Point Velocity 93.9 cm/s Mitral E to A Ratio 0.7 MV Deceleration Time 172.0 ms LV E' Lateral Velocity 5.6 cm/s Mitral E to LV E' Lateral Ratio 12.2 LV E' Septal Velocity 4.8 cm/s Mitral E to LV E' Septal Ratio 14.1 TR Peak Velocity 251.2 cm/s TR Peak Gradient 25.2 mmHg Right Atrial Pressure 3.0 mmHg Pulmonary Artery Systolic Pressu 28.2 mmHg Right Ventricular Systolic Press 28.2 mmHg FINDINGS Left Ventricle Moderately increased left ventricular wall thickness. Left ventricular cavity size at the upper limits of normal. Normal left ventricular systolic function with no obvious regional wall motion abnormalities. Left ventricular ejection fraction is estimated at 60-65%. Right Ventricle Mild right ventricular dilatation. Right Atrium Mild right atrial dilatation. Left Atrium Normal left atrial size. Mitral Valve Structurally normal mitral valve. Trace to mild mitral regurgitation. Aortic Valve Trileaflet aortic valve. Mild aortic regurgitation. Tricuspid Valve Structurally normal tricuspid valve. Trace tricuspid regurgitation. Pulmonic Valve Structurally normal pulmonic valve. Trace pulmonic regurgitation. Pericardium No pericardial effusion. Aorta Normal size aortic root and mildly dilated proximal ascending aorta. CONCLUSIONS LVH with preserved systolic function Mild RV enlargement Previewed by: Dr. Benedict Shay MD (Electronically Signed) Final Date: 28 February 2023 13:00
--- NOTE | 2023-02-28 14:21 | P.PN ---
Subjective HISTORY OF PRESENT ILLNESS: The patient is a 62-year-old male with a history of hypertension, hyperlipidemia and diabetes who has been trying to be more active physically and presented with substernal chest discomfort that persisted after he went to religion and improved upon arrival to the emergency room and receiving nitroglycerin sublingually. He is pain-free at this time. He denies any chest discomfort or dyspnea at this point. He denies any dizziness or palpitations, no PND, orthopnea or peripheral edema. He has no prior cardiac history or recent cardiac workup. He has been trying to walk on a regular basis and do some sprinting and is feeling well until yesterday. In the emergency room his EKG showed no acute changes but he had troponin elevation. Medications: Metformin 500 mg daily, DiaBeta, Norvasc 5 mg daily, Lipitor 10 mg daily. 02/28/2023 Patient is status post cardiac catheterization revealing mild to moderate triple vessel disease; with possibility that the patient had a ruptured plaque or vasospasm. Medical management was recommended. Patient examined this morning at the bedside. Patient denies any chest pain or pressure. He denies any shortness of breath. Vital signs are stable. Echocardiogram completed revealing ejection fraction 60-65%, trace to mild MR, mild aortic regurgitation, trace TR PHYSICAL EXAM: VITAL SIGNS: Reviewed. GENERAL: Well-developed in no acute distress. NECK: Supple. No JVD or thyromegaly LUNGS: Respirations even and unlabored. Lungs essentially clear to auscultation bilaterally. HEART: Regular rate and rhythm. S1 and S2 heard. EXTREMITIES: Normal range of motion. No clubbing or cyanosis. Peripheral p ulses intact. No lower extremity edema ASSESSMENT: Non-STEMI, status post cardiac catheterization revealing mild to moderate triple vessel disease with possibility of ruptured plaque or vasospasm Hypertension Hyperlipidemia Diabetes PLAN: Continue doing antiplatelet therapy with aspirin and Plavix Continue high intensity statin with atorvastatin 80 mg at night Continue additional cardiac medications Patient may be discharged home today from a cardiac standpoint and follow up on an outpatient basis Nurse practitioner note has been reviewed by physician. Signing provider agrees with the documented findings, assessment, and plan of care. Objective - Vital Signs Vital signs: Vital Signs Temp 97.8 F 02/28/23 07:51 Pulse 68 02/28/23 11:25 Resp 16 02/28/23 11:25 BP 128/63 02/28/23 11:25 Pulse Ox 95 02/28/23 11:25 FiO2 Intake & Output 02/27/23 02/28/23 02/28/23 18:59 06:59 18:59 Intake Total 438 Balance 438 Weight 115.666 kg Intake: IV 200 Oral 238 Other: Voiding Method Toilet # Voids 1 2 - Labs CBC & Chem 7: 02/27/23 03:26 02/28/23 06:48 Labs: Abnormal Lab Results - Last 24 Hours (Table) 02/27/23 02/27/23 02/27/23 Range/Units 12:36 16:43 20:51 Glucose (74-99) mg/dL POC Glucose (mg/dL) 122 H 188 H (70-110) mg/dL Hemoglobin A1c 8.4 H (<=6.0) % 02/28/23 02/28/23 02/28/23 Range/Units 05:50 06:48 11:53 Glucose 139 H (74-99) mg/dL POC Glucose (mg/dL) 151 H 153 H (70-110) mg/dL Hemoglobin A1c (<=6.0) %
--- NOTE | 2023-03-02 23:03 | P.DS ---
Providers Date of admission: 02/26/23 13:51 Attending physician: Chato Ojeda MD Consults: 02/26/23 13:51 Consult Physician Urgent Consulting Provider: Silvino Harrison Consult Reason/Comments: cp Do you want consulting provider notified?: Yes Primary care physician: Blu Agosto [facility] Course: Final Diagnosis Elevated troponin due to acute N-STEMI with mild to moderate triple vessel disease with possible rupture plaque or vasospasm Elevated d-dimer; rule out PE; CT of the chest completed in ED was negative for PE Diabetes Mellitus type 2 with hyperglycemia; patient takes glyburide and metformin which will be placed on hold while inpatient Dyslipidemia Hypertension Obesity Discharge Disposition Patient is stable for discharge home. He has been cleared by cardiology. Recommending to take aspirin 81 mg daily with plavix 75 mg daily and also lipitor has been increased to 80 mg HS. Patient will be optimized medically. Patient recommending to hold metformin for 48 hours after cardiac catheteriz ation which he can resume on 03/02. Patient to see cardiology in 1 to 2 weeks outpatient. Recommended to see his PCP Dr Agosto in 1 to 2 days. Hospital Course Patient is a 62 year old male who comes in with chest discomfort relieved by nitroglycerin. Had troponin elevation which peaked at 0.980. Patient underwent cardiac catheterization which reveals mild to moderate triple vessel disease, possible rupture plaque or vasospasm. Patient will be optimized medically with target LDL of less than 70. Echocardiogram reveals an EF of 60-65% with LVH and mild RV enlargement. Trace to mild MR, Trace TR and pulmonic regurgitation. He did have elevated D Dimer 0.74 on admission chest CTA was done which ruled out pulmonary embolism. Additionally hemoglobin A1C of 8.4 and discussed diet and lifestyle modifications with patient. Currently denying chest pain, denying shortness of breath. Lungs are clear, S1 S2 auscultated abdomen is soft and nontender. Focal neurological exam is negative. Patient will be discharged home. Please see medication reconciliation for a list of current medications. Thank you for allowing us to participate in the care of this patient. The impression and plan of care has been dictated by Tierra Guy, Nurse Practitioner as directed. Dr. Kaylah MD I have performed a history and physical examination and medical decision making of this patient, discussed the same with the dictator, and agree with the dictators assessment and plan as written, documented as a scribe. Based on total visit time, I have performed more than 50% of this visit. Patient Condition at Discharge: Stable Plan - Discharge Summary Discharge Rx Participant: No New Discharge Prescriptions: New Isosorbide Mononitrate ER [Imdur] 30 mg PO DAILY #30 tab Nitroglycerin Sl Tabs [Nitrostat] 0.4 mg SUBLINGUAL Q5M PRN #20 tab PRN Reason: Chest Pain Aspirin 81 mg PO DAILY #30 tab Clopidogrel [Plavix] 75 mg PO DAILY #30 tab Pantoprazole [Protonix] 40 mg PO AC-BRKFST #30 tab lisinopriL [Zestril] 5 mg PO BID #60 tab Atorvastatin [Lipitor] 80 mg PO HS #90 tab Continue glyBURIDE [Diabeta] 5 mg PO HS metFORMIN HCL 500 mg PO HS Discontinued amLODIPine [Norvasc] 5 mg PO HS Atorvastatin [Lipitor] 10 mg PO HS Discharge Medication List glyBURIDE [Diabeta] 5 mg PO HS 09/07/20 [History] metFORMIN HCL 500 mg PO HS 09/07/20 [History] Aspirin 81 mg PO DAILY #30 tab 02/28/23 [Rx] Atorvastatin [Lipitor] 80 mg PO HS #90 tab 02/28/23 [Rx] Clopidogrel [Plavix] 75 mg PO DAILY #30 tab 02/28/23 [Rx] Isosorbide Mononitrate ER [Imdur] 30 mg PO DAILY #30 tab 02/28/23 [Rx] Nitroglycerin Sl Tabs [Nitrostat] 0.4 mg SUBLINGUAL Q5M PRN #20 tab 02/28/23 [Rx] Pantoprazole [Protonix] 40 mg PO AC-BRKFST #30 tab 02/28/23 [Rx] lisinopriL [Zestril] 5 mg PO BID #60 tab 02/28/23 [Rx] Follow up Appointment(s)/Referral(s): Gagan Kingston MD [STAFF PHYSICIAN] - 1 Week (Office staff will call pt with an appointment date and time) Blu Agosto MD [Primary Care Provider] - 03/01/23 4:15 pm (appt with GEORGE Mariee) Ambulatory/Diagnostic Orders: Basic Metabolic Panel [LAB.AMB] Time Frame: 3 Days, Location: None Selected Patient Instructions/Handouts: Moderate Sedation (DC), After Radial Heart Catheterization (GEN), Type 2 Diabetes Management for Adults (DC) Activity/Diet/Wound Care/Special Instructions: NO METFORMIN FOR 48 HOURS NO DRIVING FOR 3 DAYS. OK TO SHOWER TOMORROW. REMOVE DRESSING FIRST NO NEED TO REAPPLY AFTER SHOWER. NO TUBS, SWIMMING OR SOAKING PUNCTURE SITE (NO DOING DISHES BY HAND) FOR FIVE DAYS TO AVOID RISK OF INFECTION. AVOID PUSHING, PULLING, LIFTING GREATER THAN 5 LBS FOR FIVE DAYS. SIGNS OF INFECTION IE: FEVER, RASH, UNUSUAL DRAINAGE, SWELLING OR HARD KNOT IN SITE CONTACT DOCTOR TO BE EVALUATED OR GO TO ER. IF PUNCTURE BLEEDS, HOLD FIRM PRESSURE OVER SITE AND GO TO ER. CALL [address] S[address]F. MEDICATIONS DIRECTED BY [employer] PALLET BU[employer]DER. Discharge Disposition: HOME SELF-CARE
== END 2023-02-28 14:34 | disposition home or self-care (01) | DRG 282 ==
LOC: EC 11:50 → OBSVTOIN 13:51 → 6NMEDSUR 13:51 → 3SCARD 02-27 04:19
PROVIDERS: ADMIT Internal Medicine; ATTEND Internal Medicine
PROC: 4A023N7 Measurement of Cardiac Sampling and Pressure, Left Heart, Percutaneous Approach (ICD-10-PCS; principal; 2023-02-27 12:55)
PROC: B2111ZZ Fluoroscopy of Multiple Coronary Arteries using Low Osmolar Contrast (ICD-10-PCS; principal; 2023-02-27 12:55)
DX: I21.3 ST elevation (STEMI) myocardial infarction of unspecified site (principal); I25.10 Atherosclerotic heart disease of native coronary artery without angina pectoris; I10 Essential (primary) hypertension; R79.1 Abnormal coagulation profile; I25.83 Coronary atherosclerosis due to lipid rich plaque; Z79.84 Long term (current) use of oral hypoglycemic drugs; Z79.899 Other long term (current) drug therapy; E78.5 Hyperlipidemia, unspecified; E66.9 Obesity, unspecified; Z68.37 Body mass index [BMI] 37.0-37.9, adult; Z28.21 Immunization not carried out because of patient refusal
CPT/HCPCS: 36415; 71046; 71275; 80048; 80053; 80061; 83036; 83735; 84484; 85025; 85379; 85610; 85730; 93005; 93306; 93458; 96365; 96366; 99285

== ENCOUNTER 2023-08-29 10:49 | Inpatient (IN) | payer BC, MEDICARE, OTHER ==
[2023-08-29] MEDS: HEPARIN SODIUM 1,000 UN/ML (10ML VL) IV ONE (10:53)
[2023-08-29] MEDS: MORPHINE SULFATE 4 MG/ML SYRINGE IV STA (10:54)
[2023-08-29] MEDS: SODIUM CHLORIDE 0.9% 1,000 ML IV ONE (11:00)
--- NOTE | 2023-08-29 11:02 | ED ---
Chest Pain HPI - General Chief Complaint: Chest Pain Stated Complaint: STEMI Time Seen by Provider: 08/29/23 10:50 Source: patient Mode of arrival: EMS Limitations: no limitations - History of Present Illness Initial Comments: 63-year-old man presents emergency department reporting chest pain. Patient states that he went on a walk this morning. He began having severe crushing chest pain. Patient is diaphoretic and nauseated. Upon EMS arrival they did find that he was having ST segment elevation. Patient states that he recently had a cardiac cath last year. He states that his cath was normal. He denies any stents in his heart. He does admit to some shortness of breath. Pain is worse with exertion. No fevers, chills or cough. No other alleviating, precipitating modifying factors - Related Data Home Medications Medication Instructions Recorded Confirmed Semaglutide [Ozempic] 0.5 mg SQ Q7D 08/29/23 08/29/23 Previous Rx's Medication Instructions Recorded Isosorbide Mononitrate ER [Imdur] 30 mg PO DAILY #30 tab 02/28/23 Nitroglycerin Sl Tabs [Nitrostat] 0.4 mg SUBLINGUAL Q5M PRN #20 tab 02/28/23 Acetaminophen Tab [Tylenol] 650 mg PO Q4HR PRN tab 08/31/23 Aspirin 81 mg PO DAILY tab 08/31/23 Atorvastatin [Lipitor] 80 mg PO HS #90 tab 08/31/23 Empagliflozin [Jardiance] 10 mg PO DAILY #30 tablet 08/31/23 Ezetimibe [Zetia] 10 mg PO DAILY #30 tab 08/31/23 Losartan [Cozaar] 25 mg PO DAILY #30 tab 08/31/23 Metoprolol Tartrate 75 mg PO BID #90 tab 08/31/23 Pantoprazole [Protonix] 40 mg PO AC-BRKFST #30 tab 08/31/23 Tamsulosin [Flomax] 0.4 mg PO PC-BRKFST #30 cap 08/31/23 Ticagrelor [Brilinta] 90 mg PO BID #60 tab 08/31/23 Allergies Allergy/AdvReac Type Severity Reaction Status Date / Time No Known Allergies Allergy Verified 08/29/23 13:39 Review of Systems ROS Statement: Those systems with pertinent positive or pertinent negative responses have been documented in the HPI. ROS Other: All systems not noted in ROS Statement are negative. Past Medical History Past Medical History: Diabetes Mellitus, Hyperlipidemia, Hypertension History of Any Multi-Drug Resistant Organisms: None Reported Past Surgical History: No Surgical Hx Reported, Hernia Repair Past Anesthesia/Blood Transfusion Reactions: No Reported Reaction Past Psychological History: No Psychological Hx Reported Smoking Status: Never smoker Past Alcohol Use History: None Reported Past Drug Use History: None Reported - Past Family History Father Family Medical History: COPD, Coronary Artery Disease (CAD) General Exam Limitations: no limitations General appearance: alert, in distress, other (Diaphoretic) Head exam: Present: atraumatic, normocephalic, normal inspection Eye exam: Present: normal appearance, PERRL, EOMI. Absent: scleral icterus, conjunctival injection, periorbital swelling ENT exam: Present: normal exam, mucous membranes moist Neck exam: Present: normal inspection. Absent: tenderness, meningismus, lymp hadenopathy Respiratory exam: Present: normal lung sounds bilaterally. Absent: respiratory distress, wheezes, rales, rhonchi, stridor Cardiovascular Exam: Present: regular rate, normal rhythm, normal heart sounds. Absent: systolic murmur, diastolic murmur, rubs, gallop, clicks GI/Abdominal exam: Present: soft, normal bowel sounds. Absent: distended, tenderness, guarding, rebound, rigid Extremities exam: Present: normal inspection, full ROM, normal capillary refill. Absent: tenderness, pedal edema, joint swelling, calf tenderness Back exam: Present: normal inspection Neurological exam: Present: alert, oriented X3, CN II-XII intact Psychiatric exam: Present: normal affect, normal mood Skin exam: Present: warm, dry, intact, normal color. Absent: rash Course Vital Signs 08/29/23 08/29/23 08/29/23 10:50 10:55 10:59 Temperature 98.0 F Pulse Rate 94 89 90 Pulse Rate [ 89 Supervisor Safety [employer] ] Respiratory 18 18 18 Rate Blood Pressure 143/97 145/94 137/91 O2 Sat by Pulse 95 98 96 Oximetry Chest Pain MDM - MDM Was pt. sent in by a medical professional or institution (, PA, OPTICAL MECHANIC, urgent care, hospital, or half-way...) When possible be specific @ -No Did you speak to anyone other than the patient for history (EMS, parent, family, police, friend...)? What history was obtained from this source @ -Spoke with EMS for history Did you review nursing and triage notes (agree or disagree)? Why? @ -I reviewed and agree with nursing and triage notes Were old charts reviewed (outside hosp., previous admission, EMS record, old EKG, old radiological studies, urgent care reports/EKG's, half-way records)? Report findings @ -I reviewed patient's heart cath from last February 2023 Differential Diagnosis (chest pain, altered mental status, abdominal pain women, abdominal pain men, vaginal bleeding, weakness, fever, dyspnea, syncope, headache, dizziness, GI bleed, back pain, seizure, CVA, palpatations, mental health, musculoskeletal)? @ -Differential Chest Pain: Stable Angina, Unstable Angina, STEMI, NSTEMI Aortic Dissection, Pneumothorax, Musculoskeletal, Esophageal Spasm GERD, Cholecystitis, Pancreatitis, Zoster, this is not meant to be an all-inclusive list. EKG interpreted by me (3pts min.). @ -EKG demonstrates sinus rhythm with a rate of 84. WV interval 182. QRS 88. QTc of 407. Patient has ST segment elevation V2 through V6. J-point elevation in the inferior leads. No reciprocal changes X-rays interpreted by me (1pt min.). @ -Yes and demonstrates no acute process CT interpreted by me (1pt min.). @ -None done U/S interpreted by me (1pt. min.). @ -None done What testing was considered but not performed or refused? (CT, X-rays, U/S, labs)? Why? @ -None What meds were considered but not given or refused? Why? @ -None Did you discuss the management of the patient with other professionals (professionals i.e. DrKeron, PA, OPTICAL MECHANIC, lab, RT, psych nurse, manager social responsibility, gemologist, teacher, commissioned fire officer, case checker)? Give summary @ -Spoke with Dr. Aguilar who does present to the emergency department to evaluate the patient. Also spoke to Dr. Agosto who will admit the patient Was smoking cessation discussed for >3mins.? @ -No Was critical care preformed (if so, how long)? @ -Yes, 40 minutes for STEMI activation Were there social determinants of health that impacted care today? How? (Homelessness, low income, unemployed, alcoholism, drug addiction, transportation, low edu. Level, literacy, decrease access to med. care, fci, rehab)? @ -No Was there de-escalation of care discussed even if they declined (Discuss DNR or withdrawal of care, Hospice)? DNR status @ -No What co-morbidities impacted this encounter? (DM, HTN, Smoking, COPD, CAD, Cancer, CVA, ARF, Chemo, Hep., AIDS, mental health diagnosis, sleep apnea, morbid obesity)? @ -Diabetes mellitus Was patient admitted / discharged? Hospital course, mention meds given and route, prescriptions, significant lab abnormalities, going to OR and other pertinent info. @ -Upon arrival patient was seen and evaluated in trauma 3. Thorough history and physical exam was performed. IV access was established. Laboratory studies were conducted. Portable chest x-ray was performed. STEMI has been activated prehospital. Dr. Aguilar does come to the emergency department to evaluate the patient. He was agreeable to taking the patient for heart cath. He was given heparin bolus. 1 L of normal saline is hung. Patient did receive his aspirin. He is taken to the Patient Svcs Mgr in stable condition with a guarded prognosis Undiagnosed new problem with uncertain prognosis? @ -No Drug Therapy requiring intensive monitoring for toxicity (Heparin, Nitro, Insulin, Cardizem)? @ -No Were any procedures done? @ -No Diagnosis/symptom? @ -Acute chest pain, acute STEMI Acute, or Chronic, or Acute on Chronic? @ -Acute Uncomplicated (without systemic symptoms) or Complicated (systemic symptoms)? @ -Complicated Side effects of treatment? @ -No Exacerbation, Progression, or Severe Exacerbation? @ -No Poses a threat to life or bodily function? How? (Chest pain, [place], [place], pneumonia, PE, COPD, DKA, ARF, appy, cholecystitis, CVA, Diverticulitis, Homicidal, Suicidal, threat to staff... and all critical care pts) @ -Yes as patient did arrive with STEMI Disposition Clinical Impression: STEMI (ST elevation myocardial infarction) Disposition: ADMITTED IP TO THIS HOSP Condition: Serious Is patient prescribed a controlled substance at d/c from ED?: No Time of Disposition: 11:04 Decision to Admit Reason: Admit from EC Decision Date: 08/29/23 Decision Time: 11:04
[2023-08-29] MEDS ORDERED: NALOXONE 0.4 MG/ML 1 ML VIAL IV PRN (11:04)
[2023-08-29] MEDS: IV FLUID CONTINUATION 1,000 ML IV ONE (11:06)
[2023-08-29] MEDS ORDERED: fentaNYL (PF) 50 MCG/ML 2 ML AMP ONE (11:13)
[2023-08-29] MEDS ORDERED: HEPARIN SODIUM 1,000 UN/ML (10ML VL) ONE (11:13)
[2023-08-29] MEDS: MIDAZOLAM 2 MG/2 ML VIAL IVP ONE (11:16)
[2023-08-29] MEDS: fentaNYL (PF) 50 MCG/ML 2 ML AMP IVP ONE (11:16)
[2023-08-29] MEDS: LIDOCAINE 1% INJ 10MG/ML (20 ML MDV) SQ ONE (11:17)
[2023-08-29] MEDS: HEPARIN SODIUM 1,000 UN/ML (10ML VL) IVP ONE (11:20)
[2023-08-29] MEDS: VERAPAMIL SYRINGE (5 MG/10 ML) INTRAARTER ONE (11:20)
[2023-08-29] MEDS ORDERED: TICAGRELOR 90 MG TAB ONE (11:27)
[2023-08-29] MEDS: TICAGRELOR 90 MG TAB PO ONE (11:30)
--- NOTE | 2023-08-29 11:36 | P.CRDCN ---
History of Present Illness History of present illness: HISTORY OF PRESENT ILLNESS: This is a 63-year-old male with a past medical history significant for coronary artery disease, hypertension, hyperlipidemia, and diabetes. Patient follows in the office with Dr. Kingston. We have been asked to see the patient in consultation for STEMI. Patient examined at the bedside in the emergency room. Patient states he was walking this morning and had a couple short episodes where he was jogging. He reports he began to have chest pain with radiation down his left arm. He presented to the ER for further evaluation. The patient continues to report chest pain at the time of examination. Blood pressure is stable. DIAGNOSTICS: - EKG reveals sinus mechanism with ST elevation in anterior lateral leads - Laboratory data: Not available at the time of this dictation - Current home cardiac medication list not updated at the time of this dictation - Most recent echocardiogram obtained in February 2023 reveals ejection fraction 60 to 65%, trace TR, trace to mild MR. - Cardiac catheterization history: February 2023 revealing mild to moderate triple-vessel disease. Medical management was recommended. REVIEW OF SYSTEMS: At the time of my exam: CONSTITUTIONAL: Denies fever or chills. HEENT: Denies blurred vision, vision changes, or eye pain. Denies hemoptysis CARDIOVASCULAR: Denies chest pain. Denies orthopnea. Denies PND. Denies palpitations RESPIRATORY: Denies shortness of breath. GASTROINTESTINAL: Denies abdominal pain. Denies nausea or vomiting. HEMATOLOGIC: Denies bleeding disorders. GENITOURINARY: Denies any blood in urine. SKIN: Denies pruitis. Denies rash. PHYSICAL EXAM: VITAL SIGNS: Reviewed. GENERAL: Well-developed in no acute distress. HEENT: Head is normocephalic. Pupils are equal, round. Sclerae anicteric. Mucous membranes of the mouth are moist. Neck supple. No JVD or thyromegaly LUNGS: Respirations even and unlabored. Lungs essentially clear to auscultation bilaterally. HEART: Regular rate and rhythm. S1 and S2 heard. ABDOMEN: Soft. Nondistended. Nontender. EXTREMITIES: Normal range of motion. No clubbing or cyanosis. Peripheral pulses intact. No lower extremity edema NEUROLOGIC: Awake and alert. Oriented x 3. ASSESSMENT: Anterior STEMI Mild to moderate triple-vessel disease, per cardiac catheterization 02/2023 Hypertension Hyperlipidemia Diabetes NYHA class 1 PLAN: Patient presenting with STEMI. Patient received heparin and aspirin in ER. Patient to undergo emergent cardiac cath with Dr. Harrison. Patient is agreeable. Further recommendations pending patient course. Nurse practitioner note has been reviewed by physician. Signing provider agrees with the documented findings, assessment, and plan of care documented by FOOD ANALYST as a scribe. Past Medical History Past Medical History: Diabetes Mellitus, Hyperlipidemia, Hypertension History of Any Multi-Drug Resistant Organisms: None Reported Past Surgical History: No Surgical Hx Reported, Hernia Repair Past Anesthesia/Blood Transfusion Reactions: No Reported Reaction Past Psychological History: No Psychological Hx Reported Smoking Status: Never smoker Past Alcohol Use History: None Reported Past Drug Use History: None Reported - Past Family History Father Family Medical History: COPD, Coronary Artery Disease (CAD) Medications and Allergies Home Medications Medication Instructions Recorded Confirmed Type glyBURIDE [Diabeta] 5 mg PO HS 09/07/20 02/26/23 History metFORMIN HCL 500 mg PO HS 09/07/20 02/26/23 History Aspirin 81 mg PO DAILY #30 tab 02/28/23 Rx Atorvastatin [Lipitor] 80 mg PO HS #90 tab 02/28/23 Rx Clopidogrel [Plavix] 75 mg PO DAILY #30 tab 02/28/23 Rx Isosorbide Mononitrate ER [Imdur] 30 mg PO DAILY #30 tab 02/28/23 Rx Nitroglycerin Sl Tabs [Nitrostat] 0.4 mg SUBLINGUAL Q5M PRN #20 tab 02/28/23 Rx Pantoprazole [Protonix] 40 mg PO AC-BRKFST #30 tab 02/28/23 Rx lisinopriL [Zestril] 5 mg PO BID #60 tab 02/28/23 Rx Allergies Allergy/AdvReac Type Severity Reaction Status Date / Time No Known Allergies Allergy Verified 08/29/23 10:55 Physical Exam Vitals: Vital Signs Temp Pulse Pulse Resp BP Pulse Ox 08/29/23 10:55 89 89 18 145/94 98 08/29/23 10:50 98.0 F 94 18 143/97 95 Intake and Output 08/28/23 08/29/23 08/29/23 22:59 06:59 14:59 Other: Weight 112.491 kg Results Current Medications Generic Name Dose Route Start Last Admin Trade Name Freq PRN Reason Stop Dose Admin Sodium Chloride 1,000 mls @ 999 mls/hr 08/29/23 11:00 08/29/23 11:00 Saline 0.9% IV 08/29/23 12:00 999 mls/hr .Q1H1M ONE Administration Naloxone HCl 0.2 mg 08/29/23 11:04 Naloxone 0.4 Mg/Ml 1 Ml Vial IV Q2M PRN Opioid Reversal Intake and Output 08/28/23 08/29/23 08/29/23 22:59 06:59 14:59 Other: Weight 112.491 kg Patient Weight 08/30/23 06:59 Weight 112.491 kg
[2023-08-29 11:38] LABS: ALT 19 U/L (4-49); AST 27 U/L (17-59); African American GFR (CKD) >90 (>60 ml/min/1.73 sqM); Alkaline Phosphatase 70 U/L (38-126); Anion Gap 8 mmol/L; Blood Urea Nitrogen 14 mg/dL (9-20); Calcium 8.9 mg/dL (8.4-10.2); Carbon Dioxide 23 mmol/L (22-30); Chloride 109 mmol/L (98-107); Glucose 167 mg/dL (74-99); Magnesium 1.8 mg/dL (1.6-2.3); Non-African American GFR(CKD) 88 (>60 ml/min/1.73 sqM); Potassium 3.8 mmol/L (3.5-5.1); Sodium 140 mmol/L (137-145); Total Bilirubin 1.7 mg/dL (0.2-1.3); Total Protein 6.9 g/dL (6.3-8.2)
[2023-08-29 11:41] LABS: NT-Pro-B-Type Natriuretic Pept <20 pg/mL
[2023-08-29] MEDS: IOPAMIDOL-370 100ML BTL INJ ONE ×2 (11:42→11:54)
[2023-08-29] MEDS ORDERED: ZOLPIDEM 5 MG TAB PO PRN (11:53)
[2023-08-29] MEDS ORDERED: ATROPINE SULFATE 0.1 MG/ML 10ML SYRINGE IV PRN (11:53)
[2023-08-29] MEDS ORDERED: NITROGLYCERIN SL TABS 0.4 MG TAB SUBLINGUAL PRN (11:53)
[2023-08-29] MEDS ORDERED: RX INFO: IV CONTRAST WAS GIVEN 1 EACH MISC MISCELLANE PRN (11:53)
--- NOTE | 2023-08-29 12:01 | P.PCN ---
Date of Procedure: 08/29/23 Operative Findings: CARDIAC CATHETERIZATION AND PERCUTANEOUS CORONARY INTERVENTION PERFORMING PHYSICIAN: Silvino Harrison MD, [facility] PROCEDURE PERFORMED: 1. Selective right and left coronary angiogram 2. Left heart catheterization 3. Successful stenting of proximal LAD using 4.0 x 33 mm Xience DARINEL with an excellent angiographic results 4. Adjunctive use of intravascular ultrasound and aspiration thrombectomy 5. Ultrasound-guided access of the right radial artery INDICATION: Acute anterior ST elevation myocardial infarction COMPLICATION: None APPROACH: Right radial artery PROCEDURE DESCRIPTION: After obtaining informed consent the patient was brought to the cardiac Insurance Agent. The right radial artery was cannulated using micropuncture technique under ultrasound guidance and micropuncture wire passed easily then I placed a 6 Qatari 11 cm sheath at the right radial artery. Anticoagulation was initiated using heparin with continuous ACT monitoring. After that I did selective right and left coronary angiogram using JR4 and JL 3.5 catheters. After that I did left heart catheterization using the JR4 catheter which crossed the aortic valve. The angiogram revealed occluded LAD in the proximal portion with a large thrombus burden. Anticoagulation as a mention earlier was initiated and continued using heparin with continuous ACT monitoring. I did engage the left main using JL 3.5 catheter. I did cross the acute total occlusion of the LAD using a run-through wire. Aspiration thrombectomy was performed using an export catheter with extraction of red thrombus. After that the predilatation was performed using 3.5 mm balloon. Intravascular ultrasound was performed and showed a diameter of the LAD proximally around 4.5 mm and distally around 4 mm. I deployed 4.0 x 33 mm stent and the stent subsequently postdilated using 5 mm noncompliant balloon. Final angiogram and intravascular imaging performed and showed excellent results with the procedure was completed with no complication SELECTIVE CORONARY ANGIOGRAM: The right coronary artery: Large-caliber vessel and a dominant vessel with intermediate disease involving the distal portion. Left main: Is angiographically normal. Bifurcates into an LCx and LAD The left circumflex: Large-caliber vessel and codominant vessel. The LCx has mild disease only. Gives rise into a large OM branch which appears to be angiographically normal. The left anterior descending artery: Large-caliber vessel and the LAD is occluded in the proximal portion with a large thrombus burden HEMODYNAMICS: The LVEDP was 30 mmHg with no significant gradient across aortic valve CONCLUSION: Acute total occlusion of the proximal LAD with a large thrombus burden. I performed successful PCI of the LAD Elevated left-sided filling pressure POSTPROCEDURE MANAGEMENT: 1. Dual antiplatelet therapy using aspirin and Brilinta for 12 month 2. Aggressive cholesterol control 3. Follow-up with the patient
[2023-08-29] MEDS: ATORVASTATIN 40 MG TAB PO STA (12:06)
[2023-08-29 12:08] LABS: Basophils # (A) 0.1 k/uL (0-0.2); Basophils % (A) 1 %; Eosinophils # (A) 0.1 k/uL (0-0.7); Eosinophils % (A) 1 %; HCT 45.8 % (39.0-53.0); HGB 15.2 gm/dL (13.0-17.5); Lymphocytes # (A) 2.9 k/uL (1.0-4.8); Lymphocytes % (A) 45 %; MCH 31.1 pg (25.0-35.0); MCHC 33.1 g/dL (31.0-37.0); MCV 93.8 fL (80.0-100.0); Mean Platelet Volume 7.8; Monocytes # (A) 0.6 k/uL (0-1.0); Monocytes % (A) 8 %; Neutrophils # (A) 2.7 k/uL (1.3-7.7); Neutrophils % (A) 42 %; Platelet Count 331 k/uL (150-450); RBC 4.88 m/uL (4.30-5.90); RDW 12.8 % (11.5-15.5); WBC 6.5 k/uL (3.8-10.6)
[2023-08-29] MEDS: SODIUM CHLORIDE 0.9% 1,000 ML in EMPTY BAG 1 BAG IV SCH (12:10)
--- NOTE | 2023-08-29 12:49 | XR ---
EXAMINATION TYPE: XR chest 1V portable DATE OF EXAM: 08/29/2023 Comparison: 02/26/2023 Clinical History: 63-year-old male with chest pain Findings: The heart is upper limits of normal in size. Hazy densities relating to portable technique and overly ing soft tissue and underpenetration. Mild hyperinflation. No consolidation or pleural effusion. Impression: Mild hyperinflation may relate to depth of inspiration or underlying emphysema. No definite acute pro cess.
[2023-08-29] MEDS ORDERED: DEXTROSE 50% SYRINGE 50 ML IVP PRN ×2 (14:22)
[2023-08-29 15:51] LABS: Glucose,Whole Blood 155 mg/dL (70-110)
[2023-08-29] MEDS: INSULIN ASPART (NovoLOG) 100 UNIT/ML VIAL SQ SCH (15:52)
--- NOTE | 2023-08-29 16:52 | CA ---
Transthoracic Echo Report Name: Rei Jarrell Age: 63 Gender: M : 1960 Exam Date: 08/29/2023 14:02 Exam Location: [facility] Ht (in): 69 Wt (lb): 248 Ordering Physician: Grazyna Bethea Attending/Referring Phys: [id number], [employer] Software Programmer Analisa Moore RDCS Procedure CPT: Indications: LV function Cardiac Hx: Technical Quality: Technically difficult study Contrast 1: Definity Total Dose (mL): 2 Contrast 2: Total Dose (mL): MEASUREMENTS (Male / Female) Normal Values 2D ECHO LV Diastolic Diameter PLAX 5.9 cm 4.2 - 5.9 / 3.9 - 5.3 cm LV Systolic Diameter PLAX 4.5 cm IVS Diastolic Thickness 1.4 cm 0.6 - 1.0 / 0.6 - 0.9 cm LVPW Diastolic Thickness 1.3 cm 0.6 - 1.0 / 0.6 - 0.9 cm LV Relative Wall Thickness 0.5 RV Internal Dim ED PLAX 3.0 cm LA Systolic Diameter LX 4.1 cm 3.0 - 4.0 / 2.7 - 3.8 cm LV Diastolic Volume MOD BP 90.0 cm??? 67 - 155 / 56 - 104 cm??? LV Systolic Volume MOD BP 46.0 cm??? 22 - 58 / 19 - 49 cm??? LV Ejection Fraction MOD BP 48.9 % >= 55 % LV Cardiac Index MOD BP 1551.1 cm???/min???m??? LV Diastolic Volume MOD 4C 92.7 cm??? LV Systolic Volume MOD 4C 50.5 cm??? LV Ejection Fraction MOD 4C 45.5 % LV Cardiac Index MOD 4C 1484.7 cm???/min???m??? LV Diastolic Length 4C 7.7 cm LV Systolic Length 4C 6.8 cm LV Diastolic Volume MOD 2C 63.0 cm??? LV Systolic Volume MOD 2C 34.6 cm??? LV Ejection Fraction MOD 2C 45.2 % LV Cardiac Index MOD 2C 1002.8 cm???/min???m??? LV Diastolic Length 2C 6.8 cm LV Systolic Length 2C 7.2 cm LA Volume 57.0 cm??? 18 - 58 / 22 - 52 cm??? LA Volume Index 23.9 cm???/m??? 16 - 28 cm???/m??? M-MODE Aortic Root Diameter MM 3.5 cm MV E Point Septal Separation 0.4 cm AV Cusp Separation MM 2.4 cm DOPPLER MV Area PHT 5.0 cm??? Mitral E Point Velocity 97.2 cm/s Mitral A Point Velocity 76.8 cm/s Mitral E to A Ratio 1.3 MV Deceleration Time 151.7 ms TR Peak Velocity 250.9 cm/s TR Peak Gradient 25.2 mmHg Right Ventricular Systolic Press 29.5 mmHg FINDINGS Left Ventricle Left ventricular ejection fraction is estimated at 35 %. Left ventricular cavity size normal. Moderate concentric left ventricular hypertrophy. Mid to distal septal wall hypokinesis. Apical inferior and anterior hypokinesis Right Ventricle Normal right ventricular size. Right ventricular systolic pressure within normal limits. Right Atrium Right atrium not well visualized. Left Atrium Normal left atrial size. Mitral Valve Structurally normal mitral valve. Mild mitral annular calcification. Mild mitral regurgitation. Aortic Valve Trileaflet aortic valve. No aortic valve stenosis or regurgitation. Tricuspid Valve Structurally normal tricuspid valve. Mild tricuspid regurgitation. Pulmonic Valve Structurally normal pulmonic valve. Trace to mild pulmonic regurgitation. Pericardium No pericardial effusion. Aorta Normal size aortic root and proximal ascending aorta. CONCLUSIONS Moderate to severe LV systolic dysfunction with an ejection fraction of 35% Apical hypokinesis suggestive of prior myocardial infarction Mild mitral and tricuspid regurgitation Previewed by: Dr. Josr Enamorado MD (Electronically Signed) Final Date: 29 August 2023 16:51
[2023-08-29] MEDS: ACETAMINOPHEN TAB 325 MG TAB PO PRN (17:46)
[2023-08-29] MEDS: MORPHINE SULFATE 2 MG/ML SYRINGE IVP PRN (19:06)
[2023-08-29 20:07] LABS: Glucose,Whole Blood 152 mg/dL (70-110)
[2023-08-29] MEDS: ATORVASTATIN 80 MG TAB PO SCH (20:07)
[2023-08-29] MEDS: METOPROLOL TARTRATE 25 MG TAB PO SCH (20:07)
[2023-08-29] MEDS: TICAGRELOR 90 MG TAB PO SCH (20:08)
[2023-08-29 20:21] LABS: Glucose,Whole Blood 139 mg/dL (70-110)
[2023-08-29 20:43] LABS: African American GFR (CKD) >90 (>60 ml/min/1.73 sqM); Anion Gap 5 mmol/L; Blood Urea Nitrogen 13 mg/dL (9-20); Calcium 8.8 mg/dL (8.4-10.2); Carbon Dioxide 24 mmol/L (22-30); Chloride 110 mmol/L (98-107); Glucose 152 mg/dL (74-99); Magnesium 1.9 mg/dL (1.6-2.3); Non-African American GFR(CKD) >90 (>60 ml/min/1.73 sqM); Potassium 3.9 mmol/L (3.5-5.1); Sodium 139 mmol/L (137-145)
[2023-08-29] MEDS ORDERED: Magnesium Replacement Protocol 1 EACH MISC MISCELLANE PRN (20:52)
[2023-08-29] MEDS ORDERED: Potassium Replacement Protocol 1 EACH MISC MISCELLANE PRN (20:52)
[2023-08-29] MEDS ORDERED: ATORVASTATIN 80 MG TAB PO SCH (21:00)
[2023-08-29] MEDS: MAGNESIUM SULFATE-D5W PMX 1 GM in DEXTROSE/WATER 1 100ML.BAG IVPB ONE (21:09)
[2023-08-29] MEDS: POTASSIUM CHLORIDE ER 20 MEQ TAB.ER PO SCH (21:10)
--- NOTE | 2023-08-29 22:00 | P.HPIM ---
History of Present Illness H&P Date: 08/29/23 Chief Complaint: Acute ST elevation myocardial infarction, acute coronary sy ndrome, HISTORY OF PRESENT ILLNESS: 63-year-old one of my office patient well-known for long time with history of coronary artery disease, hypertension, hyperlipidemia, type 2 diabetes, history of BPH, osteoarthritis, chronic edema, who has been seen cardiology regularly w as hospitalized last in February 26, 2023 for episode of chest pain with slight change in EKG was taken to the [facility] And finding at the time with the left main is a large vessel with left main has no high-grade stenosis, LAD with large vessel with the first diagonal branch has 50% black at the ostium the rest of the vessel had no high-grade stenosis, also left circumflex had at the first obtuse marginal branch approximately 50 to 60% ostial and proximal lesion the RCA had 50% plaque in the distal mid segmental with there is no high-grade stenosis in general has mild to moderate triple-vessel disease. Patient was seen back in the office and seen by cardiology and optimized medical management by being on better antilipid management, better diabetic medication and tighter blood pressure control. He apparently stopped at some point taking his atorvastatin continue to exercise and lose weight. Patient Was walking this morning for about 2 miles while he was speed walking and jogging at some point he reported to have midsternal chest pain radiating to her left arm he has family member to call 911 per patient brought to the emergency department at [facility]. Was seen and evaluated his EKG showed significant ST elevation in the anterolateral leads consistent with acute coronary syndrome and ST elevation myocardial infarction. Patient at this point recall cardiology and sent patient to the [facility] but patient ended up going for heart catheter were found to have total occlusion of the proximal LAD with a large thrombus burden ended up having adjunctive use of intravascular ultrasound and aspiration thrombectomy done had successful stenting of the proximal LAD. The patient tolerated the procedure well ended up being admitted to the ICU afterward he is continue to have slight discomfort in the midsternal area but hemodynamically stable. REVIEW OF SYSTEMS: CONSTITUTIONAL: Well-developed no acute respiratory distress. EYES: No icterus sclerae, no conjunctivitis. EARS, NOSE, MOUTH, THROAT, and FACE: No sore throat, lymphadenopathy, carotid bruits or deformity. RESPIRATORY: Mild shortness of breath no cough or wheezes. CARDIOVASCULAR: Positive PND orthopnea palpitation and angina. GASTROINTESTINAL: No Abd pain, Nausea or vomiting, no Diarrhea or constipation, No GI Bleed, no distention or masses. GENITOURINARY: Negative for Hematuria or UTI, no kidney stones. INTEGUMENT/BREAST: Negative for any muscular injury with mild osteoarthritis.. HEMATOLOGIC/LYMPHATIC: Negative for bleed or purpura. MUSCULOSKELTAL: Negative for Myalgia or arthralgia. NEURLOGICAL: No LOC, Sz or syncope, blurred vision dizziness or abnormality.. BEHAVIORAL/PSYCH: Negative. ENDOCRINE: Negative. PHYSICAL EXAMINATION: General Appearance: Alert, cooperative, no distress, appears stated age. Neck HEENT: Supple, no lymphadenopathy, no thyroid enlargement, no carotid bruits. Lungs: Clear to auscultation without crackles or wheezes no rhonchi, no deformity. Chest Wall: Decreased expansion with deep inspiration no tenderness and no deformity was found on exam, no costochondral pain or discomfort. Heart: Regular rate and rhythm, S1, S2 normal, no murmur, rub or gallop. Back: Symmetric, no curvature, ROM normal, no CVA tenderness. Abdomen: Soft, non-tender, bowel sounds active all four quadrants, no masses, no organomegaly. Extremities: Extremities normal, atraumatic, no cyanosis or edema. Pulses: 2+ and symmetric. Skin: Skin color, texture, tugor normal, no rashes or lesions. Neurologic: Alert oriented x3 cranial nerves II through XII intact, no motor deficit, no abnormal balance or gait. ASSESSMENT AND PLAN: _Acute ST elevation myocardial infarction: With major change on EKG consistent with acute MA, patient was heparinized going to the [facility] had an angioplasty and stent placement of the proximal LAD. _Acute coronary syndrome: Still hemodynamically stable after his angioplasty and stent. _Post PCI and stent placement of the proximal LAD with thrombectomy done at that time secondary to acute MA with thrombus of the proximal LAD, patient had thrombectomy and stent placement will continue dual antiplatelet agent with Brilinta along with aspirin continue better medical management at this point. _Type 2 diabetes: Has been on Ozempic along with Janumet orally, has been doing well on Ozempic with significant improvement lately A1c will be done tomorrow continue Accu-Chek with sliding scale coverage. _Hypertension: Remain on amlodipine patient supposed to start ARB along with beta-edy and if he is able to tolerate medication well no need for calcium channel edy. _Hyperlipidemia: Was on atorvastatin 80 mg daily which apparently patient has not been taking lately continue 80 mg of atorvastatin and if for any reason cannot tolerated well we will switch to another statin and consider the idea of starting patient on Repatha 140 mg twice a month injection. _BPH: With? Of UTI, UA and culture will be done and start antibiotic if positi ve. _Mild neuropathy: With slight change not on any medication currently can benefit from smaller dose of gabapentin. _Significant decrease in ejection fraction post myocardial infarction: Patient w ill be on a slightly tighter management for heart failure at this point including possibility of being on ARB, small dose of beta-edy, and at least spironolactone. _GI prophylaxis: Will start pantoprazole 40 mg daily. _DVT prophylaxis: Early mobilization and knee-high FILI hose. CODE STATUS: Full code. Admit patient to the inpatient service for more than 2 night stay. Past Medical History Past Medical History: Diabetes Mellitus, Hyperlipidemia, Hypertension History of Any Multi-Drug Resistant Organisms: None Reported Past Surgical History: No Surgical Hx Reported, Hernia Repair Past Anesthesia/Blood Transfusion Reactions: No Reported Reaction Past Psychological History: No Psychological Hx Reported Smoking Status: Never smoker Past Alcohol Use History: None Reported Past Drug Use History: None Reported - Past Family History Father Family Medical History: COPD, Coronary Artery Disease (CAD) Medications and Allergies Home Medications Medication Instructions Recorded Confirmed Type Atorvastatin [Lipitor] 80 mg PO HS #90 tab 02/28/23 08/29/23 Rx Clopidogrel [Plavix] 75 mg PO DAILY #30 tab 02/28/23 08/29/23 Rx Isosorbide Mononitrate ER [Imdur] 30 mg PO DAILY #30 tab 02/28/23 08/29/23 Rx Nitroglycerin Sl Tabs [Nitrostat] 0.4 mg SUBLINGUAL Q5M PRN #20 tab 02/28/23 08/29/23 Rx Semaglutide [Ozempic] 0.5 mg SQ Q7D 08/29/23 08/29/23 History amLODIPine [Norvasc] 5 mg PO DAILY 08/29/23 08/29/23 History Allergies Allergy/AdvReac Type Severity Reaction Status Date / Time No Known Allergies Allergy Verified 08/29/23 13:39 Physical Exam Vitals: Vital Signs Temp Pulse Pulse Resp BP Pulse Ox 08/29/23 16:00 98.2 F 82 11 L 154/87 91 L 08/29/23 15:00 90 24 178/113 89 L 08/29/23 14:00 80 20 128/76 94 L 08/29/23 13:00 88 14 133/80 95 08/29/23 12:50 97.5 F L 88 24 133/80 92 L 08/29/23 10:59 90 18 137/91 96 08/29/23 10:55 89 89 18 145/94 98 08/29/23 10:50 98.0 F 94 18 143/97 95 Intake and Output 08/29/23 08/29/23 08/29/23 06:59 14:59 22:59 Intake Total 450 150 Output Total 200 200 Balance 250 -50 Intake: IV 300 Intake, IV Titration 150 150 Amount Sodium Chloride 0.9% 1, 150 150 000 ml In Empty Bag 1 bag @ 75 mls/hr IV .[id number] [facility] [place] Rx#:[id number] Output: Urine 200 200 Other: Weight 112.491 kg Results CBC & Chem 7: 08/29/23 10:56 08/29/23 20:08 Labs: Abnormal Lab Results - Last 24 Hours (Table) 08/29/23 08/29/23 Range/Units 10:56 15:50 Chloride 109 H (98-107) mmol/L Glucose 167 H (74-99) mg/dL POC Glucose (mg/dL) 155 H (70-110) mg/dL Total Bilirubin 1.7 H (0.2-1.3) mg/dL
[2023-08-29 23:22] LABS: Amorphous Sediment,Urine Rare /hpf; Appearance,Urine Clear (Clear); Bacteria,Urine Rare /hpf; Bilirubin,Urine Negative (Negative); Blood,Urine Small (Negative); Color,Urine Yellow; Glucose,Urine (UA) 2+ (Negative); Ketones,Urine 1+ (Negative); Leukocyte Esterase,Urine Negative (Negative); Mucus,Urine Few /hpf; Nitrite,Urine Negative (Negative); Protein,Urine Trace (Negative); RBC,Urine 12 /hpf (0-5); Specific Gravity,Urine 1.038 (1.001-1.035); Squamous Epithelial Cell,Urine <1 /hpf (0-4); Urobilinogen,Urine <2.0 mg/dL (<2.0); WBC,Urine 2 /hpf (0-5)
[2023-08-30] MEDS: MAG HYDROX/AL HYDROX/SIMETH 30 ML CUP PO PRN (00:43)
[2023-08-30 06:24] LABS: Glucose,Whole Blood 130 mg/dL (70-110)
[2023-08-30] MEDS: PANTOPRAZOLE 40 MG TABLET PO SCH (06:31)
[2023-08-30 06:57] LABS: Basophils % (A) 0 %; Eosinophils # (A) 0.1 k/uL (0-0.7); Eosinophils % (A) 1 %; HCT 50.8 % (39.0-53.0); HGB 16.9 gm/dL (13.0-17.5); Lymphocytes # (A) 1.5 k/uL (1.0-4.8); Lymphocytes % (A) 10 %; MCH 31.3 pg (25.0-35.0); MCHC 33.4 g/dL (31.0-37.0); MCV 93.8 fL (80.0-100.0); Mean Platelet Volume 7.4; Monocytes % (A) 7 %; Neutrophils # (A) 12.6 k/uL (1.3-7.7); Neutrophils % (A) 82 %; Platelet Count 356 k/uL (150-450); RBC 5.41 m/uL (4.30-5.90); RDW 13.2 % (11.5-15.5); WBC 15.3 k/uL (3.8-10.6)
[2023-08-30 07:20] LABS: ALT 105 U/L (4-49); African American GFR (CKD) >90 (>60 ml/min/1.73 sqM); Albumin 4.2 g/dL (3.5-5.0); Alkaline Phosphatase 74 U/L (38-126); Anion Gap 11 mmol/L; Blood Urea Nitrogen 14 mg/dL (9-20); Calcium 9.2 mg/dL (8.4-10.2); Carbon Dioxide 23 mmol/L (22-30); Chloride 106 mmol/L (98-107); Glucose 153 mg/dL (74-99); Magnesium 2.1 mg/dL (1.6-2.3); Non-African American GFR(CKD) >90 (>60 ml/min/1.73 sqM); Sodium 140 mmol/L (137-145); Total Bilirubin 2.4 mg/dL (0.2-1.3); Total Protein 7.3 g/dL (6.3-8.2)
[2023-08-30 07:27] LABS: AST 1000 U/L (17-59)
--- NOTE | 2023-08-30 07:42 | P.PN ---
Subjective Progress Note Date: 08/30/23 Principal diagnosis: STEMI The patient is a very pleasant 63-year-old -[place] gentleman with a past medical history significant for coronary artery disease as well as diabetes and hypertension and dyslipidemia who was admitted to the hospital with acute anterior ST ovation myocardial infarction and he underwent an emergent heart catheterization which revealed acute total occlusion of the LAD in the proximal portion which was stented with mild disease involving the left circumflex and intermediate disease involving the RCA. The echo revealed impaired LV systolic function with EF around 35%. August 30, 2023 The patient was seen and evaluated this morning. He is asymptomatic at this point. He did have short runs of nonsustained ventricular tachycardia yesterda y. The pressure remains elevated. His liver function tests are elevated as well. The right radial site is soft and nontender with a good pulse. I am going to DC the statin in the light of elevated liver function test. Add losartan to the current medical regimen and continue dual antiplatelet therapy using aspirin and Brilinta and increase the dose of metoprolol. The examination revealed regular rhythm with clear breathing sounds bilaterally and no edema was noted and the right radial site is soft and nontender with no bruises. Assessment Acute anterior ST deviation myocardial infarction Status post PCI of the LAD as described above Impaired LV function with EF around 35% Multiple comorbid conditions including diabetes and hypertension and dyslipidemia Elevated liver function test Plan DC statin Add Zetia Consider PCSK9 inhibitor Increase the dose of metoprolol Add losartan to the current medical regimen Continue dual antiplatelet therapy The patient can be transferred out of the intensive care unit Objective - Vital Signs Vital signs: Vital Signs Temp 98.5 F 08/30/23 04:00 Pulse 90 08/30/23 07:00 Resp 24 08/30/23 07:00 BP 154/93 08/30/23 07:00 Pulse Ox 96 08/30/23 07:00 FiO2 Intake & Output 08/29/23 08/30/23 08/30/23 18:59 06:59 18:59 Intake Total 750 175 Output Total 400 900 Balance 350 -725 Weight 112.491 kg 101.1 kg Intake: IV 300 Intake, IV Titration 450 175 Amount Magnesium Sulfate-D5w Pmx 100 1 gm In Dextrose/Water 1 100ml.bag @ 100 mls/hr IVPB ONCE ONE Rx#: [id number] Sodium Chloride 0.9% 1, 450 75 000 ml In Empty Bag 1 bag @ 75 mls/hr IV .[id number] [facility] Rx#:[id number] Output: Urine 400 900 Other: # Voids 1 1 # Bowel Movements 0 1 - Labs CBC & Chem 7: 08/30/23 06:13 08/30/23 06:13 Labs: Abnormal Lab Results - Last 24 Hours (Table) 08/29/23 08/29/23 08/29/23 Range/Units 10:00 10:56 15:50 WBC (3.8-10.6) k/uL Neutrophils # (1.3-7.7) k/uL Chloride 109 H (98-107) mmol/L Glucose 167 H (74-99) mg/dL POC Glucose (mg/dL) 155 H (70-110) mg/dL Total Bilirubin 1.7 H (0.2-1.3) mg/dL AST (17-59) U/L ALT (4-49) U/L Ur Specific [place] 1.038 H (1.001-1.035) Urine Protein Trace H (Negative) Urine Glucose (UA) 2+ H (Negative) Urine Ketones 1+ H (Negative) Urine Blood Small H (Negative) Urine RBC 12 H (0-5) /hpf Amorphous Sediment Rare H (None) /hpf Urine Bacteria Rare H (None) /hpf Urine Mucus Few H (None) /hpf 08/29/23 08/29/23 08/29/23 Range/Units 20:06 20:08 20:20 WBC (3.8-10.6) k/uL Neutrophils # (1.3-7.7) k/uL Chloride 110 H (98-107) mmol/L Glucose 152 H (74-99) mg/dL POC Glucose (mg/dL) 152 H 139 H (70-110) mg/dL Total Bilirubin (0.2-1.3) mg/dL AST (17-59) U/L ALT (4-49) U/L Ur Specific [place] (1.001-1.035) Urine Protein (Negative) Urine Glucose (UA) (Negative) Urine Ketones (Negative) Urine Blood (Negative) Urine RBC (0-5) /hpf Amorphous Sediment (None) /hpf Urine Bacteria (None) /hpf Urine Mucus (None) /hpf 08/30/23 08/30/23 08/30/23 Range/Units 06:13 06:13 06:23 WBC 15.3 H (3.8-10.6) k/uL Neutrophils # 12.6 H (1.3-7.7) k/uL Chloride (98-107) mmol/L Glucose 153 H (74-99) mg/dL POC Glucose (mg/dL) 130 H (70-110) mg/dL Total Bilirubin 2.4 H (0.2-1.3) mg/dL AST 1000 H (17-59) U/L ALT 105 H (4-49) U/L Ur Specific [place] (1.001-1.035) Urine Protein (Negative) Urine Glucose (UA) (Negative) Urine Ketones (Negative) Urine Blood (Negative) Urine RBC (0-5) /hpf Amorphous Sediment (None) /hpf Urine Bacteria (None) /hpf Urine Mucus (None) /hpf
[2023-08-30] MEDS: ASPIRIN 81 MG PO SCH (08:58)
[2023-08-30] MEDS: EZETIMIBE 10 MG TAB PO SCH (08:58)
[2023-08-30] MEDS: TAMSULOSIN 0.4 MG CAP.ER.24H PO SCH (08:59)
[2023-08-30] MEDS: LOSARTAN 25 MG TAB PO SCH (08:59)
[2023-08-30] MEDS: METOPROLOL TARTRATE 50 MG TAB PO SCH (08:59)
[2023-08-30] MEDS ORDERED: ASPIRIN 81 MG PO SCH (09:00)
--- NOTE | 2023-08-30 09:28 | P.PN ---
Subjective Progress Note Date: 08/30/23 HISTORY OF PRESENT ILLNESS: 63-year-old one of my office patient well-known for long time with history of coronary artery disease, hypertension, hyperlipidemia, type 2 diabetes, history of BPH, osteoarthritis, chronic edema, who has been seen cardiology regularly was hospitalized last in February 26, 2023 for episode of chest pain with slight change in EKG was taken to the Schedule Clerk And finding at the time with the left main is a large vessel with left main has no high-grade stenosis, LAD with large vessel with the first diagonal branch has 50% black at the ostium the rest of the vessel had no high-grade stenosis, also left circumflex had at the first obtuse marginal branch approximately 50 to 60% ostial and proximal lesion the RCA had 50% plaque in the distal mid segmental with there is no high-grade stenosis in general has mild to moderate triple-vessel disease. Patient was seen back in the office and seen by cardiology and optimized medical management by being on better antilipid management, better diabetic medication and tighter blood pressure control. He apparently stopped at some point taking his atorvastatin continue to exercise and lose weight. Patient Was walking this morning for about 2 miles while he was speed walking and jogging at some point he reported to have midsternal chest pain radiating to her left arm he has family member to call 911 per patient brought to the emergency department at [facility]. Was seen and evaluated his EKG showed significant ST elevation in the anterolateral leads consistent with acute coronary syndrome and ST elevation myocardial infarction. Patient at this point recall cardiology and sent patient to the Schedule Clerk but patient ended up going for heart catheter were found to have total occlusion of the proximal LAD with a large thrombus burden ended up having adjunctive use of intravascular ultrasound and aspiration thrombectomy done had successful stenting of the proximal LAD. The patient tolerated the procedure well ended up being admitted to the ICU afterward he is continue to have slight discomfort in the midsternal area but hemodynamically stable. August 30, 2023: Patient is doing well he had slight urinary irritation through the night was started on Flomax to help his BPH, his UA was negative. His liver enzymes this morning came back to be quite bit elevated clear etiology liver ultrasound was ordered. His statin was stopped today temporary till was done with his hepatitis panel and liver ultrasound. He is feeling well no further chest pain or shortness of breath this point. Review his ejection fraction with his echo from yesterday was down to 35 percentile, with his angioplasty and stent expected probably to recover in the next few weeks. Patient might be transfer out of the ICU today will be staying in the hospital for another day at least till tomorrow. REVIEW OF SYSTEMS: CONSTITUTIONAL: Well-developed no acute respiratory distress. EYES: No icterus sclerae, no conjunctivitis. EARS, NOSE, MOUTH, THROAT, and FACE: No sore throat, lymphadenopathy, carotid bruits or deformity. RESPIRATORY: Mild shortness of breath no cough or wheezes. CARDIOVASCULAR: Positive PND orthopnea palpitation and angina. GASTROINTESTINAL: No Abd pain, Nausea or vomiting, no Diarrhea or constipation, No GI Bleed, no distention or masses. GENITOURINARY: Negative for Hematuria or UTI, no kidney stones. INTEGUMENT/BREAST: Negative for any muscular injury with mild osteoarthritis.. HEMATOLOGIC/LYMPHATIC: Negative for bleed or purpura. MUSCULOSKELTAL: Negative for Myalgia or arthralgia. NEURLOGICAL: No LOC, Sz or syncope, blurred vision dizziness or abnormality.. BEHAVIORAL/PSYCH: Negative. ENDOCRINE: Negative. PHYSICAL EXAMINATION: General Appearance: Alert, cooperative, no distress, appears stated age. Neck HEENT: Supple, no lymphadenopathy, no thyroid enlargement, no carotid bruits. Lungs: Clear to auscultation without crackles or wheezes no rhonchi, no deformity. Chest Wall: Decreased expansion with deep inspiration no tenderness and no deformity was found on exam, no costochondral pain or discomfort. Heart: Regular rate and rhythm, S1, S2 normal, no murmur, rub or gallop. Back: Symmetric, no curvature, ROM normal, no CVA tenderness. Abdomen: Soft, non-tender, bowel sounds active all four quadrants, no masses, no organomegaly. Extremities: Extremities normal, atraumatic, no cyanosis or edema. Pulses: 2+ and symmetric. Skin: Skin color, texture, tugor normal, no rashes or lesions. Neurologic: Alert oriented x3 cranial nerves II through XII intact, no motor deficit, no abnormal balance or gait. ASSESSMENT AND PLAN: _Acute ST elevation myocardial infarction: Post PCI and stent placement with thrombectomy of proximal LAD has done very well is resting comfortably today with no major complication no further chest pain, his troponin was really high this morning the effect from yesterday. _Acute coronary syndrome: Still hemodynamically stable after his angioplasty and stent. _Post PCI and stent placement of the proximal LAD with thrombectomy done at that time secondary to acute IA with thrombus of the proximal LAD, patient had thrombectomy and stent placement will continue dual antiplatelet agent with Brilinta along with aspirin continue better medical management at this point. _Type 2 diabetes: Will resume GLP-1 product is only on Accu-Chek with sliding scale coverage for now. Patient will benefit from adding SGLT2 product since his angioplasty. _Abnormal liver function test: Not clear etiology could be hypoperfusion from his IA yesterday, liver ultrasound to be done at this point and hepatitis panel pending. _Hypertension: Please amlodipine will be taking away and remain on metoprolol and add losartan and titrate dose if needed. _Hyperlipidemia: Was on atorvastatin 80 mg daily which apparently patient has not been taking lately continue 80 mg of atorvastatin and if for any reason cannot tolerated well we will switch to another statin and consider the idea of starting patient on Repatha 140 mg twice a month injection. _BPH: With? Of UTI, UA and culture will be done and start antibiotic if positive. _Mild neuropathy: With slight change not on any medication currently can benefit from smaller dose of gabapentin. _Significant decrease in ejection fraction post myocardial infarction: Patient will be on a slightly tighter management for heart failure at this point including possibility of being on ARB, small dose of beta-edy, and at least spironolactone. _GI prophylaxis: Will start pantoprazole 40 mg daily. Prognosis: Good. Discussion: Patient is resting comfortably after his angioplasty with stent placement and thrombectomy is doing much better we will continue current management for now with his abnormal liver function test we will hold off statin at this point he will result of his liver function test, hepatitis and ultrasound done. Patient remain in the hospital for at least another day. Planning to advance previously with cardiac rehab as soon as possible. Possible discharge home tomorrow. Objective - Vital Signs Vital signs: Vital Signs Temp 98.5 F 08/30/23 04:00 Pulse 86 08/30/23 04:00 Resp 16 08/30/23 04:00 BP 129/72 08/30/23 04:00 Pulse Ox 93 L 08/30/23 04:00 FiO2 Intake & Output 08/29/23 08/29/23 08/30/23 06:59 18:59 06:59 Intake Total 750 175 Output Total 400 900 Balance 350 -725 Weight 112.491 kg 101.1 kg Intake: IV 300 Intake, IV Titration 450 175 Amount Magnesium Sulfate-D5w Pmx 100 1 gm In Dextrose/Water 1 100ml.bag @ 100 mls/hr IVPB ONCE ONE Rx#: [id number] Sodium Chloride 0.9% 1, 450 75 000 ml In Empty Bag 1 bag @ 75 mls/hr IV .[id number] [facility] Rx#:[id number] Output: Urine 400 900 - Labs CBC & Chem 7: 08/30/23 06:13 08/30/23 06:13 Labs: Abnormal Lab Results - Last 24 Hours (Table) 08/29/23 08/29/23 08/29/23 Range/Units 10:00 10:56 15:50 Chloride 109 H (98-107) mmol/L Glucose 167 H (74-99) mg/dL POC Glucose (mg/dL) 155 H (70-110) mg/dL Total Bilirubin 1.7 H (0.2-1.3) mg/dL Ur Specific [place] 1.038 H (1.001-1.035) Urine Protein Trace H (Negative) Urine Glucose (UA) 2+ H (Negative) Urine Ketones 1+ H (Negative) Urine Blood Small H (Negative) Urine RBC 12 H (0-5) /hpf Amorphous Sediment Rare H (None) /hpf Urine Bacteria Rare H (None) /hpf Urine Mucus Few H (None) /hpf 08/29/23 08/29/23 08/29/23 Range/Units 20:06 20:08 20:20 Chloride 110 H (98-107) mmol/L Glucose 152 H (74-99) mg/dL POC Glucose (mg/dL) 152 H 139 H (70-110) mg/dL Total Bilirubin (0.2-1.3) mg/dL Ur Specific [place] (1.001-1.035) Urine Protein (Negative) Urine Glucose (UA) (Negative) Urine Ketones (Negative) Urine Blood (Negative) Urine RBC (0-5) /hpf Amorphous Sediment (None) /hpf Urine Bacteria (None) /hpf Urine Mucus (None) /hpf
[2023-08-30 11:17] VITALS: BMI 32.9
[2023-08-30 11:17] LABS: Glucose,Whole Blood 156 mg/dL (70-110)
[2023-08-30 11:33] LABS: Chol/HDL Ratio 3.73 Ratio; LDL Cholesterol,Calculated 124.8 mg/dL (0.0-131.0)
--- NOTE | 2023-08-30 14:09 | US ---
EXAMINATION TYPE: US abdomen limited DATE OF EXAM: 08/30/2023 COMPARISON: NONE CLINICAL INDICATION: Male, 63 years old with history of abnormal LFT; Elevated liver enzymes TECHNIQUE: Multiple sonographic images of the right upper quadrant are obtained. FINDINGS: EXAM MEASUREMENTS: Liver Length: 16.6 cm Gallbladder Wall: 0.3 cm CBD: 0.3 cm Right Kidney: 12.2 x 6.3 x 4.8 cm WHOLESALE REPRESENTATIVE NOTES:*Limitations due to large amount of overlying bowel gas Pancreas: Obscured by bowel gas Liver: extremely heterogeneous Gallbladder: no evidence of stones Evidence for sonographic Shelton's sign: no CBD: wnl Right Kidney: lobulated contour IMPRESSION: 1. No suspicious acute abdomen ultrasound abnormality. 2. Some mild fatty infiltration of the minimally enlarged liver is present.
[2023-08-30 16:12] LABS: Glucose,Whole Blood 161 mg/dL (70-110)
[2023-08-30] MEDS: CLEVIDIPINE BUTYRATE 25 MG in EMPTY BAG 1 BAG IV SCH (19:34)
[2023-08-30 20:10] LABS: Glucose,Whole Blood 137 mg/dL (70-110)
[2023-08-30 20:36] VITALS: TEMP 98.7
[2023-08-31 00:45] VITALS: RESP 16
[2023-08-31 06:14] LABS: Glucose,Whole Blood 135 mg/dL (70-110)
[2023-08-31 08:28] VITALS: BP 124/85; PULSE 107
[2023-08-31 11:19] LABS: HCT 48.3 % (39.0-53.0); HGB 16.5 gm/dL (13.0-17.5); MCH 32.2 pg (25.0-35.0); MCHC 34.2 g/dL (31.0-37.0); MCV 94.1 fL (80.0-100.0); Mean Platelet Volume 7.3; Platelet Count 260 k/uL (150-450); RBC 5.13 m/uL (4.30-5.90); RDW 13.2 % (11.5-15.5); WBC 12.1 k/uL (3.8-10.6)
[2023-08-31 12:14] LABS: ALT 66 U/L (4-49); AST 260 U/L (17-59); African American GFR (CKD) >90 (>60 ml/min/1.73 sqM); Albumin 3.3 g/dL (3.5-5.0); Alkaline Phosphatase 66 U/L (38-126); Anion Gap 6 mmol/L; Blood Urea Nitrogen 17 mg/dL (9-20); Calcium 8.5 mg/dL (8.4-10.2); Carbon Dioxide 23 mmol/L (22-30); Chloride 107 mmol/L (98-107); Glucose 196 mg/dL (74-99); Non-African American GFR(CKD) >90 (>60 ml/min/1.73 sqM); Sodium 136 mmol/L (137-145); Total Bilirubin 2.3 mg/dL (0.2-1.3); Total Protein 6.3 g/dL (6.3-8.2)
--- NOTE | 2023-08-31 13:30 | P.PN ---
Subjective HISTORY OF PRESENT ILLNESS: This is a 63-year-old male with a past medical history significant for coronary artery disease, hypertension, hyperlipidemia, and diabetes. Patient follows in the office with Dr. Kingston. We have been asked to see the patient in consultation for STEMI. Patient examined at the bedside in the emergency room. Patient states he was walking this morning and had a couple short episodes where he was jogging. He reports he began to have chest pain with radiation down his left arm. He presented to the ER for further evaluation. The patient continues to report chest pain at the time of examination. Blood pressure is stable. DIAGNOSTICS: - EKG reveals sinus mechanism with ST elevation in anterior lateral leads - Laboratory data: Not available at the time of this dictation - Current home cardiac medication list not updated at the time of this dictation - Most recent echocardiogram obtained in February 2023 reveals ejection fraction 60 to 65%, trace TR, trace to mild MR. - Cardiac catheterization history: February 2023 revealing mild to moderate triple-vessel disease. Medical management was recommended. August 30, 2023 The patient was seen and evaluated this morning. He is asymptomatic at this point. He did have short runs of nonsustained ventricular tachycardia yesterday. The pressure remains elevated. His liver function tests are elevated as well. The right radial site is soft and nontender with a good pulse. I am going to DC the statin in the light of elevated liver function test. Add losartan to the current medical regimen and continue dual antiplatelet therapy using aspirin and Brilinta and increase the dose of metoprolol. The examination revealed regular rhythm with clear breathing sounds bilaterally and no edema was noted and the right radial site is soft and nontender with no bruises. 08/31/2023 Patient examined this morning the bedside. Patient denies chest pain or pressure. He denies shortness of breath. Vital signs are stable. Patient is mildly tachycardic. AST 260. ALT 66. PHYSICAL EXAM: VITAL SIGNS: Reviewed. GENERAL: Well-developed in no acute distress. HEENT: Head is normocephalic. Pupils are equal, round. Sclerae anicteric. Mucous membranes of the mouth are moist. Neck supple. No JVD or thyromegaly LUNGS: Respirations even and unlabored. Lungs essentially clear to auscultation bilaterally. HEART: Regular rate and rhythm. S1 and S2 heard. ABDOMEN: Soft. Nondistended. Nontender. EXTREMITIES: Normal range of motion. No clubbing or cyanosis. Peripheral pulses intact. No lower extremity edema NEUROLOGIC: Awake and alert. Oriented x 3. ASSESSMENT: Anterior STEMI, status post PCI of the LAD with thrombectomy Ischemic cardiomyopathy, ejection fraction 35% Hypertension Hyperlipidemia Diabetes NYHA class 1 Elevated LFTs PLAN: Continue dual antiplatelet therapy with aspirin and Brilinta for 12 months Statin therapy is being held secondary to transaminitis. Will readdress on an outpatient basis. Goal LDL less than 70. Increase metoprolol to 75 mg twice a day Continue additional cardiac medications Patient is stable for discharge home today from a cardiac standpoint He is to follow-up on an outpatient basis with Dr. Kingston Nurse practitioner note has been reviewed by physician. Signing provider agrees with the documented findings, assessment, and plan of care documented by ENERGY MANAGER as a scribe. Objective - Vital Signs Vital signs: Vital Signs Temp 98.7 F 08/30/23 20:01 Pulse 107 H 08/31/23 08:34 Resp 16 08/31/23 08:34 BP 124/85 08/31/23 08:10 Pulse Ox 95 08/31/23 08:10 FiO2 Intake & Output 08/30/23 08/31/23 08/31/23 18:59 06:59 18:59 Intake Total 240 Balance 240 Weight 101.1 kg Intake: Oral 240 Other: # Voids 1 1 # Bowel Movements 1 - Labs CBC & Chem 7: 08/31/23 10:51 08/31/23 10:51 Labs: Abnormal Lab Results - Last 24 Hours (Table) 08/30/23 08/30/23 08/31/23 Range/Units 16:10 20:09 06:12 WBC (3.8-10.6) k/uL Sodium (137-145) mmol/L Glucose (74-99) mg/dL POC Glucose (mg/dL) 161 H 137 H 135 H (70-110) mg/dL Total Bilirubin (0.2-1.3) mg/dL AST (17-59) U/L ALT (4-49) U/L Albumin (3.5-5.0) g/dL 08/31/23 08/31/23 Range/Units 10:51 10:51 WBC 12.1 H (3.8-10.6) k/uL Sodium 136 L (137-145) mmol/L Glucose 196 H (74-99) mg/dL POC Glucose (mg/dL) (70-110) mg/dL Total Bilirubin 2.3 H (0.2-1.3) mg/dL AST 260 H (17-59) U/L ALT 66 H (4-49) U/L Albumin 3.3 L (3.5-5.0) g/dL
[2023-08-31] MEDS ORDERED: METOPROLOL TARTRATE 25 MG TAB PO SCH (21:00)
== END 2023-08-31 13:20 | disposition home or self-care (01) | DRG 322 ==
LOC: EC 10:49 → 2SICU 11:06 → 3SCARD 08-30 16:46
PROVIDERS: ADMIT Internal Medicine Geriatric Medicine; ATTEND Internal Medicine Geriatric Medicine
PROC: B241ZZ3 Ultrasonography of Multiple Coronary Arteries, Intravascular (ICD-10-PCS; 2023-08-29)
PROC: 027034Z Dilation of Coronary Artery, One Artery with Drug-eluting Intraluminal Device, Percutaneous Approach (ICD-10-PCS; principal; 2023-08-29 10:54)
PROC: 02C03ZZ Extirpation of Matter from Coronary Artery, One Artery, Percutaneous Approach (ICD-10-PCS; 2023-08-29 10:54)
PROC: 4A023N7 Measurement of Cardiac Sampling and Pressure, Left Heart, Percutaneous Approach (ICD-10-PCS; 2023-08-29 10:54)
PROC: B2111ZZ Fluoroscopy of Multiple Coronary Arteries using Low Osmolar Contrast (ICD-10-PCS; 2023-08-29 10:54)
DX: I21.09 ST elevation (STEMI) myocardial infarction involving other coronary artery of anterior wall (principal); I47.20 Ventricular tachycardia, unspecified; N39.0 Urinary tract infection, site not specified; N40.0 Benign prostatic hyperplasia without lower urinary tract symptoms; I25.5 Ischemic cardiomyopathy; I25.10 Atherosclerotic heart disease of native coronary artery without angina pectoris; I10 Essential (primary) hypertension; E78.5 Hyperlipidemia, unspecified; E11.40 Type 2 diabetes mellitus with diabetic neuropathy, unspecified; Z79.82 Long term (current) use of aspirin; Z79.02 Long term (current) use of antithrombotics/antiplatelets; Z79.84 Long term (current) use of oral hypoglycemic drugs; Z79.899 Other long term (current) drug therapy; Z82.49 Family history of ischemic heart disease and other diseases of the circulatory system
CPT/HCPCS: 36415; 71045; 76705; 76937; 80048; 80053; 80061; 81001; 83036; 83735; 83880; 84484; 85025; 85027; 92978; 93005; 93306; 93458; 96374; 96375; 99291